=== PATIENT | female | born 1950 | race Caucasian/White ===

== ENCOUNTER 2020-08-13 10:18 | Outpatient (CLI) | payer MEDICARE, OTHER, SELFPAY ==
--- NOTE | ~2020-08-13 | XR_ITS ---
XR foot LT 2V DATE: 08/13/2020 11:17 INDICATION: Stiffness, joint pain. Gout. History of lupus. TECHNIQUE: AP and lateral views COMPARISON: None FINDINGS: There is slight plantar and posterior calcaneal enthesopathy. No fracture, dislocation, periosteal reaction or bone destruction. IMPRESSION: Slight plantar and posterior calcaneal enthesopathy Reviewed, dictated and finalized at location A.
--- NOTE | ~2020-08-13 | XR_ITS ---
XR wrist RT 2V DATE: 08/13/2020 11:17 INDICATION: Joint pain, stiffness. Gout. History of lupus. TECHNIQUE: AP and lateral views COMPARISON: None FINDINGS: There is mild to moderate osteoarthritic change at the first carpometacarpal joint. Moderate osteopenia. No fracture or dislocation, periosteal reaction or bone destruction, chondrocalcinosis or erosive ana rosa nge. IMPRESSION: Mild to moderate osteoarthritic change at the first carpometacarpal joint Reviewed, dictated and finalized at location A.
--- NOTE | ~2020-08-13 | XR_ITS ---
XR wrist LT 2V DATE: 08/13/2020 11:17 INDICATION: Stiffness, joint pain. Gout. History of lupus. TECHNIQUE: AP and lateral views COMPARISON: None FINDINGS: There is mild osteoarthritic change at the first carpometacarpal joint. No erosive change or chondrocalcinosis. No fracture, dislocation, periosteal reaction or bone destruc tion. IMPRESSION: Mild osteoarthritic change at the first carpometacarpal joint Reviewed, dictated and finalized at location A.
--- NOTE | ~2020-08-13 | XR_ITS ---
XR hand RT 2V DATE: 08/13/2020 11:17 INDICATION: Joint stiffness, pain. Gout. History of lupus. TECHNIQUE: AP and lateral views COMPARISON: None FINDINGS: There is mild osteophytic change at the first carpometacarpal joint. No fracture, dislocation, periosteal reaction or bone destruction or erosive change is evident. IMPRESSION: Mild osteoarthritis at first carpal metacarpal joint Reviewed, dictated and finalized at location A.
--- NOTE | ~2020-08-13 | XR_ITS ---
XR hand LT 2V DATE: 08/13/2020 11:17 INDICATION: Stiffness, joint pain. Gout. History of lupus. TECHNIQUE: AP and lateral views COMPARISON: None FINDINGS: There is mild osteoarthritic change at the first carpometacarpal joint. No fracture, dislocation, periosteal reaction or bone destruction or erosive change. IMPRESSION: Mild osteoarthritis at the first carpometacarpal joint Reviewed, dictated and finalized at location A.
--- NOTE | ~2020-08-13 | XR_ITS ---
XR foot RT 2V DATE: 08/13/2020 11:17 INDICATION: Stiffness, joint pain. Gout. History of lupus. TECHNIQUE: AP and lateral views COMPARISON: None FINDINGS: There is mild osteoarthritis at the first metatarsophalangeal joint. No fracture or dislocation, periosteal reaction or bone destruction. IMPRESSION: Mild osteophyte is at first tarsal metatarsal joint Reviewed, dictated and finalized at location A.
--- NOTE | ~2020-08-13 | XR_ITS ---
XR ankle LT 2V DATE: 08/13/2020 11:17 INDICATION: Stiffness, joint pain. Gout. History of lupus. TECHNIQUE: 2 views COMPARISON: None FINDINGS: There is mild plantar calcaneal enthesopathy without associated periostitis or erosive mclaughlin ge. No fracture or dislocation of the ankle or disruption of the ankle mortise. No periosteal reaction or bone destruction. IMPRESSION: Mild plantar calcaneal enthesopathy Reviewed, dictated and finalized at location A.
--- NOTE | ~2020-08-13 | XR_ITS ---
XR ankle RT 2V DATE: 08/13/2020 11:17 INDICATION: Stiffness, joint pain. CAD. History of lupus. TECHNIQUE: AP and lateral views COMPARISON: None FINDINGS: No fracture or dislocation of the ankle or disruption of the ankle mortise. No periosteal r eaction or bone destruction. IMPRESSION: Negative Reviewed, dictated and finalized at location A. IMPRESSION: Negative
== END 2020-08-13 10:19 | disposition home or self-care (01) ==
DX: M34.1 CR(E)ST syndrome (principal); Z79.899 Other long term (current) drug therapy
CPT/HCPCS: 73100; 73120; 73600; 73620

== ENCOUNTER 2020-09-08 10:05 | Outpatient (CLI) | payer MEDICARE, OTHER, SELFPAY ==
--- NOTE | ~2020-09-08 | MR_ITS ---
EXAMINATION: MR knee RT wo con DATE: 09/08/2020 11:08 INDICATION: Right knee pain and swelling. TECHNIQUE: Magnetic resonance imaging (MRI) of the right knee was performed without intravenous contr ast. Sequences included coronal PD-weighted FSE, coronal PD-weighted FS FSE, sagittal T2-weighted FS E, sagittal PD-weighted FS FSE and axial PD weighted fat saturated FSE. COMPARISON: None. FINDINGS: Medial compartment: Complex tear of the body and posterior horn of the medial meniscus. Partial-thickness cartilage loss with chondral surface regularity of the anterior to central weightbearing medial femoral condyle. Emma per fissuring with underlying mild cortical irregularity along the lateral side of the anterior weigh tbearing medial femoral condyle. Lateral compartment: Small longitudinal tear involving the inner third of the posterior body and lateral side of the poste rior horn which extends to the inferior articular surface. Articular cartilage is normal. Patellofemoral compartment: Deep chondral fissuring with subarticular edema at the cephalad aspect of the patellar apical ridge w ith less severe partial thickness chondral ulceration at the more inferior apical ridge immediately a djacent medial and lateral facets. Additional chondral fissuring with minimal underlying cortical irr egularity along the inferior aspect of the medial trochlea. Ligaments and tendons: Anterior and posterior cruciate ligaments are normal. The medial collateral ligament and fibular pierce ateral ligament complex are normal. Patellar tendon is normal. Mild tendinopathy and small enthesophy emely at the patellar insertion of the distal quadriceps tendon. The visualized medial and lateral hams tring tendons as well as the iliotibial band are normal. Fluid: Physiologic amount of fluid in the joint space. No loose osteochondral bodies identified. Osseous/other: Small intraosseous ganglion cyst in the proximal tibia near the insertions of the posterior horn of t he medial meniscus and posterior cruciate ligament. No fracture or pathologic marrow replacing proces s. IMPRESSION: 1. Complex medial meniscal tear. 2. Small longitudinal oblique tear involving the inner third of the lateral meniscus at the junction of the body and posterior horn. 3. Mild tricompartmental osteoarthritis with moderate to high-grade chondromalacia in the medial and patellofemoral compartments. Reviewed, dictated and finalized at location A. NG [employer]CTOR IMPRESSION: 1. Complex medial meniscal tear. 2. Small longitudinal oblique tear involving the inner third of the lateral men iscus at the junction of the body and posterior horn. 3. Mild tricompartmental osteoarthritis with moderate to high-grade chondromala burak in the medial and patellofemoral compartments.
== END 2020-09-08 10:06 | disposition home or self-care (01) ==
LOC: CHSIMG 10:07
PROVIDERS: PCP Family Medicine; Visit Provider Orthopaedic Surgery
DX: M25.561 Pain in right knee (principal)
CPT/HCPCS: 73721

== ENCOUNTER 2020-09-11 08:49 | Outpatient (CLI) | payer MEDICARE, OTHER, SELFPAY ==
--- NOTE | ~2020-09-11 | MM_ITS ---
EXAMINATION: MM screening bre BI w harvinder HISTORY: Screening TECHNIQUE: Craniocaudal and mediolateral oblique 3-D tomosynthesis images were obtained and synthetic 2-D images were generated. CAD analysis was submitted and interpreted. COMPARISON: Comparison to multiple prior studies sequentially, with oldest reviewed study dated 04/2011. BREAST PARENCHYMAL COMPOSITION: The breasts are heterogeneously dense, which may obscure small masses . FINDINGS: There is no evidence of suspicious mass, calcification, or architectural distortion to sugg est malignancy in either breast. There has been no suspicious interval change. IMPRESSION: 1. No mammographic evidence of malignancy. 2. Recommend routine screening mammography in one year. BI-RADS Category 1: Negative Reviewed, dictated and finalized at location A. [employer]
[2020-09-11 09:10] VITALS: PULSE 76; O2SAT 99
[2020-09-11 09:32] VITALS: PULSE 87; O2SAT 84
[2020-09-11 09:33] VITALS: PULSE 91; O2SAT 84
[2020-09-11 09:35] VITALS: PULSE 87; O2SAT 86
[2020-09-11 09:37] VITALS: PULSE 102; O2SAT 94
--- NOTE | 2020-09-11 09:44 | HOMEO2EVAL ---
Home Oxygen Evaluation RC: Home Oxygen (O2) Evaluation Start: 09/11/20 09:31 Freq: Status: Active Protocol: RPE Activity Type Activity Date Activity User E-Sign Co-Sign Detail Recorded Client Recorded Date Recorded By Document 09/11/20 09:10 SJB [id number] 09/11/20 09:43 SJB Document 09/11/20 09:32 SJB [id number] 09/11/20 09:43 SJB Document 09/11/20 09:33 SJB [id number] 09/11/20 09:43 SJB Document 09/11/20 09:35 SJB [id number] 09/11/20 09:43 SJB Document 09/11/20 09:37 SJB [id number] 09/11/20 09:43 SJB 09/11/20 09/11/20 09/11/20 09:10 09:32 09:33 Home O2 Evaluation Test Phase Resting Exercise Exercise Oxygen Delivery Room Air Room Air Nasal Cannula Oxygen Flow Rate (L/min) 2 Pulse Oximetry (90-100 %) 99 84 L 84 L Pulse Rate (60-100 beats/min) 76 87 91 Activity Tolerance Good Good Fair Rating of Perceived Dyspnea (PD) +1 Mild, +2 Mild, Some +1 Mild, Noticeable to Difficulty, Noticeable to the Participant Noticeable to the Participant but Not to an the Observer but Not to an Observer Observer Rate of Perceived Exertion (PE) 9 Very light 11 Fairly light Ambulation Distance (feet) 150 250 Home Oxygen Evaluation Comments 02 started at 2 02 turned up to lpm 3 lpm Treatment Charges O2 Evaluation 09/11/20 09/11/20 09:35 09:37 Home O2 Evaluation Test Phase Exercise Exercise Oxygen Delivery Nasal Cannula Nasal Cannula Oxygen Flow Rate (L/min) 3 4 Pulse Oximetry (90-100 %) 86 L 94 Pulse Rate (60-100 beats/min) 87 102 H Activity Tolerance Fair Fair Rating of Perceived Dyspnea (PD) +2 Mild, Some +2 Mild, Some Difficulty, Difficulty, Noticeable to Noticeable to the Observer the Observer Rate of Perceived Exertion (PE) 12 11 Fairly light Ambulation Distance (feet) 300 600 Home Oxygen Evaluation Comments 02 turned up to Patient 4 lpm finished walk on 4 lpm mickey well. Once walk is over and patient sits, without 02, she recovers quickly to 98%. Pt states she never felt SOB throughout the 6 minute walk but knows that that is what happens to her at home with any walking. Treatment Charges
--- NOTE | 2020-09-11 12:22 | WPDPFTINT ---
PFT Interpretation PFT Interpretation: DOS: 09/11/2020 REQUESTING: REASON FOR TESTING: Pulmonary fibrosis PULMONARY FUNCTION TESTS Results are reproducible and reliable. Spirometry: FEV1 is 95%, normal. FVC is 106%< normal. FEV1% is normal. OHG54-06% is decreased at 54%. There is a 14% increased in the small airways flow after bronchodilator, which is not significant. Lung volumes: Total lung capacity is increased at 125%, mild hyperinflation. RV is severely increased at 165% consistent with severe air trapping. Normal airway resistance. Diffusion: DLCO is 73%, mildly decreased. Flow volume loop: Normal. IMPRESSION: Small airways pattern with non-statistically significant response to bronchodilator; mild hyperinflation, severe air trapping, mild decrease in diffusion. Lack of response to bronchodilator should not preclude use if clinically indicated. Macrina Silveira MD
--- NOTE | 2020-09-11 12:39 | WPDPFTINT ---
PFT Interpretation PFT Interpretation: SIX MINUTE WALK WITH HOME OXYGEN EVALUATION DOS: 09/11/2020 REQUESTING: Dr Silveira REASON: pulmonary fibrosis This test was conducted per ATS protocol. The initial saturation was 99% on room air at rest. Pulse was 76. The patient walked for 6 minutes dropping the saturation to 84%. At this point, oxygen was started at 2 liters/minute. Oxygen was gradually increased to maintain a saturation greater than 88%. Patient required 4 L /minute during walking. She recovered quickly to 98%. She did not feel significantly short of breath. Distance walked was 600 ft/ 184.8 meters which is less than expected per age. She did not stop to rest. Pulse ranged from 76 to 102 beats per minute. IMPRESSION: This patient desaturates with walking and requires 4 liters/minute with exertion, none at rest. . Distance walked 600 ft less than expected for age.
--- NOTE | 2020-09-11 12:40 | ECHO_ITS ---
Patient Info Name: Tameka Vasquez Age: 70 years : 1950 Gender: Female Ht: 64 in Wt: 162 lbs BSA: 1.84 m2 HR: 65 bpm BP: 131 / 77 mmHg Heart Rhythm: Sinus Rhythm Technical Quality: Good Exam Date: 09/11/2020 1:53 PM Exam Location: [facility] Patient Status: Outpatient Admit Date: 09/11/2020 Staff Ordering Physician: Macrina Silveira MD Heater Furnace: Grecia Echavarria RDCS Attending Provider: Macrina Silveira MD Referring Physician: Jordana LORENZ; Exam Type: CA echo dop color flow w con Study Info Indications R06.02 - Shortness of breath Complete two-dimensional, color flow and Doppler transthoracic echocardiogram is performed with contrast to opacify the left ventricle and to improve the deliniation of the left ventricle endocardial borders. Strain analysis performed. Contrast/Agitated Saline Contrast/Ag. Saline: Definity Amount: 4.00 ml New IV Access: Antecubital Space and Left Site Condition: No extravasation, Site dressing applied and IV removed History/Risk Factors Congenital Heart Disease (CHD): No Diabetic Therapy: Oral Myocardial Infarction (OR): No Chronic Lung Disease: Yes Obesity: Yes Renal Disease: No Coronary Artery Disease (CAD) No Congestive Heart Failure (CHF): No Cardiomyopathy/LV Systolic Dysfunction: No Diabetes Mellitus: Type II COPD: No Tobacco Use: Former Cerebrovascular Disease: No Deep Vein Thrombosis (DVT): None Dialysis: None Frailty Scale (CSHA): 3: Managing Well Cardiac Arrest: No Summary 1. Left ventricular chamber dimension is mildly enlarged. 2. Definity contrast administered improved wall motion interpretation. 3. Left ventricular systolic function is normal, estimated at 55-60%. 4. The left ventricular diastolic function is grade I diastolic dysfunction. 5. Global longitudinal strain is normal at -17.9%. 6. Right ventricular systolic function is mildly reduced based on TAPSE of 1.5 cm. 7. Left atrial chamber dimension is mildly enlarged. 8. There is mild mitral valve regurgitation. 9. There is mild tricuspid valve regurgitation. 10. No pulmonary hypertension, estimated pulmonary arterial systolic pressure is 35 mmHg. 11. There is trace pulmonic regurgitation. Recommendations * Continue medical therapy for diabetes. Left Ventricle Tissue doppler E/e' is not performed. Definity contrast administered improved wall motion interpretation. Global longitudinal strain is normal at -17.9%. Left ventricular chamber dimension is mildly enlarged. Left ventricular systolic function is normal, estimated at 55-60%. The left ventricular diastolic function is grade I diastolic dysfunction. Right Ventricle Right ventricular systolic function is mildly reduced based on TAPSE of 1.5 cm. Right ventricular chamber dimension is normal. Left Atria Left atrial chamber dimension is mildly enlarged. Right Atria Right atrial chamber dimension is normal. Aortic Valve The aortic valve is trileaflet. There is no aortic valve stenosis. There is no aortic valve regurgitation. Pulmonic Valve There is trace pulmonic regurgitation. Mitral Valve There is no mitral valve stenosis. There is mild mitral valve regurgitation. Tricuspid Valve There is mild tricuspid valve regurgitation. No pulmonary hypertension, estimated pulmonary arterial systolic pressure is 35 mmHg. Pericardium/Pleu
== END 2020-09-11 08:50 | disposition home or self-care (01) ==
PROVIDERS: PCP Family Medicine; Visit Provider Internal Medicine Critical Care Medicine
DX: J84.10 Pulmonary fibrosis, unspecified (principal); R06.02 Shortness of breath; Z12.31 Encounter for screening mammogram for malignant neoplasm of breast
CPT/HCPCS: 77063; 77067; 94060; 94618; 94726; 94729; C8929

== ENCOUNTER 2021-03-20 13:53 | Emergency (ER) | payer MEDICARE, SELFPAY ==
[2021-03-20 14:00] VITALS: BP 137/68; PULSE 83; RESP 16; TEMP 36.2; O2SAT 100
--- NOTE | 2021-03-20 14:08 | ED.FEMALEGU ---
HPI - Female Genitourinary General Chief complaint: Urogenital-Female Stated complaint: poss uti Time Seen by Provider: 03/20/21 14:08 Source: patient and RN notes reviewed History of Present Illness HPI Narrative: Patient is a 70-year-old female who presents the urgent care with complaints of a possible UTI. Patient states that a week and a half ago she started to have symptoms and was taking cssa-mth-[id number] Azo. Patient states she was then prescribed Macrobid by her PCP and finished that prescription this past Thursday. Patient then started having symptoms again and was treating herself with Azo. Patient states that the frequency and urgency has increased and it is very painful to urinate . Patient is also been taking Advil. Denies of any fever, chills, nausea, vomiting, abdominal pain. No other acute complaints. No acute distress noted. Patient aware of the plan of care. Some parts of this dictation were generated by voice recognition software and may contain typographical and/or grammatical inaccuracies. Related Data Home Medications Medication Instructions Recorded Confirmed glycopyrrolate 9 mcg-formoterol 2 puff INHALATION BID 11/05/20 01/08/21 4.8 mcg HFA aerosol inhaler esomeprazole magnesium 40 mg PO DAILY 03/20/21 03/20/21 losartan 50 mg PO DAILY 03/20/21 03/20/21 metformin 500 mg PO BID 03/20/21 03/20/21 propranolol 10 mg PO DAILY 03/20/21 03/20/21 simvastatin 10 mg PO DAILY 03/20/21 03/20/21 Allergies Allergy/AdvReac Type Severity Reaction Status Date / Time Corticosteroids Allergy Unknown Unknown Verified 11/13/20 13:43 (Glucocorticoids) cortisone Allergy Unknown Swelling Verified 11/13/20 13:43 quinapril Allergy Unknown cough Verified 11/13/20 13:43 valsartan Allergy Unknown cough Verified 11/13/20 13:43 Review of Systems Review of Systems: Narrative: CONSTITUTIONAL: Denies fever, chills, or sweats. EYES: Denies visual changes, redness, or discharge. ENT: Denies rhinorrhea, congestion, sore throat, or otalgia. CARDIOVASCULAR: Denies chest pain, palpitations, or edema. RESPIRATORY: Denies cough or dyspnea. GASTROINTESTINAL: Denies abdominal pain, nausea, vomiting, or diarrhea. GENITOURINARY: Reports of dysuria, urgency and frequency SKIN: Denies rash or itching. MUSCULOSKELETAL: Denies back pain, joint pain, or myalgia. NEUROLOGIC: Denies headache, numbness, or weakness. All other systems reviewed are negative, except as documented in HPI. [facility] Past Medical History Medical History Anemia Anxiety Arthritis BMI 27.0-27.9,adult Diabetes GERD (gastroesophageal reflux disease) Gout Hemoglobin A1c less than 7.0% 6.9 on 08/01/20 Hypertension Hyperuricemia without signs of inflammatory arthritis and tophaceous disease (~2014) IBS (irritable bowel syndrome) Lupus Osteoarthritis of right knee Osteoporosis Scleroderma Tear of medial meniscus of right knee Trochanteric bursitis, right hip Surgical History Surgical History H/O shoulder surgery Dr. Fowler, date unknown H/O: hysterectomy History of carpal tunnel surgery March 2019, Dr. Vieira Family History Family History Mother Diabetes mellitus Hypertension Family history of rheumatoid arthritis Family history of elevated blood lipids Sibling Family history of rheumatoid arthritis Family history of cardiovascular disease Hypertension Father Family history of Alzheimer's disease Hypertension Carcinoma of colon Grandparent Diabetes mellitus Other Family history of malignant neoplasm Social History Social History Smoking status: Former smoker Smoking end date: 11/09/90 Alcohol intake: current Gender identity (if verbalized by the patient): Female Comments At the time of my signature, I reviewed and a
== END 2021-03-20 14:30 | disposition home or self-care (01) ==
PROVIDERS: Emergency Provider Nurse Practitioner Family
DX: N39.0 Urinary tract infection, site not specified (principal); Z87.891 Personal history of nicotine dependence; E11.9 Type 2 diabetes mellitus without complications; K21.9 Gastro-esophageal reflux disease without esophagitis; M10.9 Gout, unspecified; I10 Essential (primary) hypertension; M81.0 Age-related osteoporosis without current pathological fracture; M34.9 Systemic sclerosis, unspecified; M17.11 Unilateral primary osteoarthritis, right knee
CPT/HCPCS: 81003; 87086; 87088; 99213; G0463

== ENCOUNTER 2021-09-12 11:50 | Outpatient (CLI) | payer MEDICARE, SELFPAY ==
--- NOTE | ~2021-09-12 | DEXA_ITS ---
Bone Density Report Name: Tameka Vasquez Age: 71 Sex: Female Ethnicity: White Date of : 1950 Indication: postmenopausal; screening for osteoporosis; height loss; hysterectomy; Referring Provider: Deisi Orr Study: Bone densitometry was performed. Exam Date: September 12, 2021 Accession number: [id number] Bone Density: Region BMD T-score Z-score Classification AP Spine(L1, L3, L4) 0.881 -1.6 0.6 Osteopenia Femoral Neck (Left) 0.680 -1.5 0.3 Osteopenia Total Hip (Left) 0.829 -0.9 0.6 Normal Femoral Neck (Right) 0.650 -1.8 0.0 Osteopenia Total Hip (Right) 0.826 -0.9 0.6 Normal Femoral Neck Mean 0.665 -1.7 0.2 Osteopenia Total Hip Mean 0.828 -0.9 0.6 Normal World Health Organization criteria for BMD impression classify patients as: Normal (T-score at or above -1.0), Osteopenia (T-score between -1.0 and -2.5), or Osteoporosis (T-score at or below -2.5). 10-year Fracture Risk(1): Major Osteoporotic Fracture 10% Hip Fracture 1.8% Reported Risk Factors: [place] (), Neck BMD=0.650, BMI=23.4 (1) FRAX(R) Version 3.08. Fracture probability calculated for an untreated patient. Fracture probability may be lower if the patient has received treatment. Clinical Information Provided by Patient: Has the following medical conditions: Hysterectomy Patient maximum height was 65 Menopause Age: 34 No regular weight bearing exercise Does not regularly consume dairy products Drinks caffeinated beverages Onset of menses at age 13 Number of children 1 Impression: The patient has low bone mass, based on the Right Femoral Neck T-score. Discussion: BONE DENSITY IS LOW AT ONE OR MORE SKELETAL SITES. This patient's lowest T-score is low at one or more skeletal sites. It meets the World Health Organization's (WHO) criteria for ?low bone mass? (T-score between -1.0 and -2.5). The patient's 10-year risk of fracture as calculated by FRAX is less than the threshold where pharmacological therapy is recommended by the National Osteoporosis Foundation (NOF). However, all treatment decisions require clinical judgment and consideration of individual patient factors, including patient preferences, comorbidities, previous drug use, risk factors not captured in the FRAX model (e.g., frailty, falls, vitamin D deficiency, increased bone turnover, interval significant decline in bone density) and possible under or overestimation of fracture risk by FRAX. The patient should follow a healthful lifestyle (good nutrition with adequate calcium and vitamin D, and appropriate weight-bearing exercise). Follow-Up: Consider repeating this study in 2 to 3 years to reassess this patient's status, or sooner if there is some new clinical indication. Reported by: Dr. Chuy King on 09/12/2021
--- NOTE | ~2021-09-12 | MM_ITS ---
EXAMINATION: MM screening bre BI w harvinder HISTORY: Screening TECHNIQUE: Craniocaudal and mediolateral oblique 3-D tomosynthesis images were obtained and synthetic 2-D images were generated. CAD analysis was submitted and interpreted. COMPARISON: Comparison to multiple prior studies sequentially, with oldest reviewed study dated 09/10. BREAST PARENCHYMAL COMPOSITION: The breasts are heterogeneously dense, which may obscure small masses . FINDINGS: There is no evidence of suspicious mass, calcification, or architectural distortion to sugg est malignancy in either breast. There has been no suspicious interval change. IMPRESSION: 1. No mammographic evidence of malignancy. 2. Recommend routine screening mammography in one year. BI-RADS Category 1: Negative Reviewed, dictated and finalized at location A.
== END 2021-09-12 11:51 | disposition home or self-care (01) ==
LOC: CHSIMG 11:52
PROVIDERS: PCP Family Medicine; Visit Provider Family Medicine
DX: Z78.0 Asymptomatic menopausal state (principal); Z12.31 Encounter for screening mammogram for malignant neoplasm of breast
CPT/HCPCS: 77063; 77067; 77080

== ENCOUNTER 2022-07-21 13:16 | Outpatient (CLI) | payer MEDICARE, SELFPAY ==
--- NOTE | 2022-07-21 01:00 | ECHO_ITS ---
Patient Info Name: Tameka Vasquez Age: 72 years : 1950 Gender: Female Ht: 64 in Wt: 130 lbs BSA: 1.64 m2 HR: 70 bpm BP: 159 / 93 mmHg Heart Rhythm: Sinus Rhythm Technical Quality: Fair Exam Date: 07/21/2022 1:16 PM Exam Location: [facility] Patient Status: Outpatient Admit Date: 07/21/2022 Staff Ordering Physician: Carolina, Kasey PATEL Scouring Pads Supervisor: Rosalba Hensley RDCS Attending Provider: Carolina, Kasey PATEL Exam Type: CA echo doppler color flow Study Info Indications - DIASTOLIC DYSFUNCTION Complete two-dimensional, color flow and Doppler transthoracic echocardiogram is performed. History/Risk Factors Congenital Heart Disease (CHD): No Diabetic Therapy: Oral Myocardial Infarction ([place]): No Chronic Lung Disease: Yes Obesity: Yes Renal Disease: No Coronary Artery Disease (CAD) No Congestive Heart Failure (CHF): No Cardiomyopathy/LV Systolic Dysfunction: No Diabetes Mellitus: Type II COPD: No Tobacco Use: Former Cerebrovascular Disease: No Deep Vein Thrombosis (DVT): None Dialysis: None Frailty Scale (CSHA): 3: Managing Well Cardiac Arrest: No Summary 1. Complete two-dimensional, color flow and Doppler transthoracic echocardiogram is performed. 2. Left ventricular chamber dimension is normal. 3. Left ventricular systolic function is normal, estimated at 60-65%. 4. There is mildly increased left ventricular wall thickness. 5. The left ventricular diastolic function is grade I diastolic dysfunction. 6. E/e' 11 is mildly elevated. 7. Left atrial chamber dimension is mildly enlarged. 8. There is trace mitral valve regurgitation. 9. There is mild tricuspid valve regurgitation. 10. No pulmonary hypertension, estimated pulmonary arterial systolic pressure is 36 mmHg. 11. There is trace pulmonic regurgitation. Recommendations * Continue medical therapy for diabetes. Left Ventricle E/e' 11 is mildly elevated. Left ventricular chamber dimension is normal. Left ventricular systolic function is normal, estimated at 60-65%. There is mildly increased left ventricular wall thickness. The left ventricular diastolic function is grade I diastolic dysfunction. Right Ventricle Right ventricular systolic function is normal and with normal TAPSE 2.1 cm. Right ventricular chamber dimension is normal. Left Atria Left atrial chamber dimension is mildly enlarged. Right Atria Right atrial chamber dimension is normal. Aortic Valve The aortic valve is trileaflet. There is no aortic valve stenosis. There is no aortic valve regurgitation. Pulmonic Valve There is trace pulmonic regurgitation. Mitral Valve There is no mitral valve stenosis. There is trace mitral valve regurgitation. Tricuspid Valve There is mild tricuspid valve regurgitation. No pulmonary hypertension, estimated pulmonary arterial systolic pressure is 36 mmHg. Pericardium/Pleural There is no pericardial effusion. Inferior Vena Cava Normal inferior vena cava with >50% collapse upon inspiration consistent with normal right atrial pressure, 5 mmHg. Aorta The aortic root size at the sinus of Valsalva is normal. Left Ventricular Outflow Tract Name Value Normal LVOT 2D
== END 2022-07-21 13:17 | disposition home or self-care (01) ==
LOC: CHSIMG 13:21
PROVIDERS: PCP Family Medicine; Visit Provider Internal Medicine Rheumatology
DX: I51.89 Other ill-defined heart diseases (principal); R94.30 Abnormal result of cardiovascular function study, unspecified
CPT/HCPCS: 93306

== ENCOUNTER 2022-07-23 10:54 | Outpatient (CLI) | payer MEDICARE, SELFPAY | END 2022-07-23 10:55 | disposition home or self-care (01) | PROVIDERS: PCP Family Medicine; Visit Provider Nurse Practitioner | DX: M34.1 CR(E)ST syndrome (principal) | CPT/HCPCS: 99199 ==

== ENCOUNTER 2022-08-15 12:37 | Outpatient (CLI) | payer MEDICARE, SELFPAY ==
--- NOTE | 2022-08-15 16:06 | P.PCNPFT_ITS ---
PFT Procedure Performed PFT Procedure Performed Spirometry with Pre/Post Bronchodilator Plethysmography (Lung Vol) Diffusing Cap (DLCO) Flow Vol Loop PFT Interpretation DOS: 08/15/2022 REQUESTING: Dr. Orr REASON FOR TESTING: Systemic sclerosis PULMONARY FUNCTION TESTS Results are reliable and reproducible. Spirometry: Pre-bronchodilator FEV1 is 2.31 L, 107% predicted. The pre- bronchodilator FVC is 3.24 L, 119% predicted. FEV1:FVC is 71%. After bronchodilator, the FVC increases 3% and the FEV1 increases 7%. Neither of these is significant. Lung volumes: The total lung capacity is 103% predicted, 5.06 L, normal. Residual volume is 1.79 L, 90% predicted, normal. RV/TLC is in the normal range. There is no air trapping or hyperinflation. FRC 3.13 L, 106% predicted, normal. Increased airway resistance 197% predicted. Diffusion: DLCO is 12 mL/min/mmHg, 68% predicted, mildly decreased. The DLCO/VA is 77%, 2.77 mL/min/mmHg/L which is partially corrected for alveolar volume. Flow volume loop: Normal. IMPRESSION: This pulmonary function study with bronchodilator shows normal spirometry, no significant response to bronchodilator. Normal lung volumes. Mild diffusion impairment. Lack of response to bronchodilator should not preclude use if clinically indicated. There are no prior studies for comparison. Macrina Silveira MD
== END 2022-08-15 12:38 | disposition home or self-care (01) ==
LOC: CHSCARD 12:43
PROVIDERS: PCP Family Medicine; Visit Provider Family Medicine
DX: M34.1 CR(E)ST syndrome (principal)
CPT/HCPCS: 94060; 94726; 94729

== ENCOUNTER 2022-09-30 12:11 | Outpatient (CLI) | payer MEDICARE, SELFPAY ==
--- NOTE | ~2022-09-30 | MM_ITS ---
EXAMINATION: MM screening bre BI w harvinder HISTORY: Screening mammogram TECHNIQUE: Craniocaudal and mediolateral oblique 3-D tomosynthesis images were obtained and synthetic 2-D images were generated. CAD analysis was submitted and interpreted. COMPARISON: 09/2021, 09/28/2020, 08/31/2019 bilateral screening mammogram examinations BREAST PARENCHYMAL COMPOSITION: The breasts are heterogeneously dense, which may obscure small masses . FINDINGS: There is no evidence of suspicious mass, calcification, or architectural distortion to sugg est malignancy in either breast. There has been no suspicious interval change. IMPRESSION: 1. No mammographic evidence of malignancy. 2. Recommend routine screening mammography in one year. BI-RADS Category 1: Negative Reviewed, dictated and finalized at location A. RUMENT LENS INSPECTOR
== END 2022-09-30 12:12 | disposition home or self-care (01) ==
LOC: CHSIMG 12:12
PROVIDERS: PCP Family Medicine; Visit Provider Family Medicine
DX: Z12.31 Encounter for screening mammogram for malignant neoplasm of breast (principal)
CPT/HCPCS: 77063; 77067

== ENCOUNTER 2023-10-12 12:49 | Outpatient (CLI) | payer MEDICARE, SELFPAY ==
--- NOTE | 2023-10-12 13:04 | ECHO_ITS ---
Patient Info Name: Tameka Vasquez Age: 73 years : 1950 Gender: Female Ht: 64 in Wt: 128 lbs BSA: 1.62 m2 HR: 65 bpm BP: 183 / 85 mmHg Heart Rhythm: Sinus Rhythm Technical Quality: Good Exam Date: 10/12/2023 1:59 PM Exam Location: [facility] Patient Status: Outpatient Admit Date: 10/12/2023 Staff Ordering Physician: Sosa, Gloria ALCAZAR Stem Dryer Maintainer: Daryl Cervantes RDCS Attending Provider: Sosa, Gloria ALCAZAR Exam Type: CA echo doppler color flow Study Info Indications - SOB Complete two-dimensional, color flow and Doppler transthoracic echocardiogram is performed. History/Risk Factors Congenital Heart Disease (CHD): No Diabetic Therapy: Oral Myocardial Infarction ([place]): No Chronic Lung Disease: Yes Obesity: Yes Renal Disease: No Coronary Artery Disease (CAD) No Congestive Heart Failure (CHF): No Cardiomyopathy/LV Systolic Dysfunction: No Diabetes Mellitus: Type II COPD: No Tobacco Use: Former Cerebrovascular Disease: No Deep Vein Thrombosis (DVT): None Dialysis: None Frailty Scale (CSHA): 3: Managing Well Cardiac Arrest: No Summary 1. Complete two-dimensional, color flow and Doppler transthoracic echocardiogram is performed. 2. Left ventricular chamber dimension is normal. 3. Left ventricular systolic function is normal, estimated at 60-65%. 4. The left ventricular diastolic function is grade I diastolic dysfunction. 5. E/e' 12 is mildly elevated. 6. Left atrial chamber dimension is mildly enlarged. 7. There is trace mitral valve regurgitation. 8. There is trace tricuspid valve regurgitation. 9. No pulmonary hypertension, estimated pulmonary arterial systolic pressure is 11 mmHg. Recommendations * Continue medical therapy for diabetes. Left Ventricle E/e' 12 is mildly elevated. Left ventricular chamber dimension is normal. Left ventricular systolic function is normal, estimated at 60-65%. The left ventricular diastolic function is grade I diastolic dysfunction. Right Ventricle Right ventricular systolic function is normal and with normal TAPSE 2.6 cm. Right ventricular chamber dimension is normal. Left Atria Left atrial chamber dimension is mildly enlarged. Right Atria Right atrial chamber dimension is normal. Aortic Valve The aortic valve is trileaflet. There is no aortic valve stenosis. There is no aortic valve regurgitation. Pulmonic Valve There is no pulmonic regurgitation. Mitral Valve There is no mitral valve stenosis. There is trace mitral valve regurgitation. Tricuspid Valve There is trace tricuspid valve regurgitation. No pulmonary hypertension, estimated pulmonary arterial systolic pressure is 11 mmHg. Pericardium/Pleural There is no pericardial effusion. Inferior Vena Cava Normal inferior vena cava with >50% collapse upon inspiration consistent with normal right atrial pressure, 5 mmHg. Aorta The aortic root size at the sinus of Valsalva is normal. Left Ventricular Outflow Tract Name Value Normal LVOT 2D LVOT Diameter 2.1 cm LVOT Doppler LVOT Peak Velocity 90 cm/s LVOT Peak Gradient 3 mmHg LVOT Mean Gr
== END 2023-10-12 12:50 | disposition home or self-care (01) ==
LOC: CHSIMG 12:51
PROVIDERS: PCP Family Medicine; Visit Provider Nurse Practitioner
DX: R06.02 Shortness of breath (principal); I51.7 Cardiomegaly
CPT/HCPCS: 93306

== ENCOUNTER 2023-10-29 13:07 | Outpatient (CLI) | payer MEDICARE, SELFPAY ==
--- NOTE | ~2023-10-29 | MM_ITS ---
EXAMINATION: MM screening bre BI w harvinder HISTORY: Screening mammogram TECHNIQUE: Craniocaudal and mediolateral oblique 3-D tomosynthesis images were obtained and synthetic 2-D images were generated. CAD analysis was submitted and interpreted. COMPARISON: 09/30/2022, 09/2021, 09/28/2020 bilateral screening mammogram examinations BREAST PARENCHYMAL COMPOSITION: The breasts are heterogeneously dense, which may obscure small masses . FINDINGS: There is no evidence of suspicious mass, calcification, or architectural distortion to sugg est malignancy in either breast. There has been no suspicious interval change. IMPRESSION: 1. No mammographic evidence of malignancy. 2. Recommend routine screening mammography in one year. BI-RADS Category 1: Negative Reviewed, dictated and finalized at location A. [employer]
== END 2023-10-29 13:08 | disposition home or self-care (01) ==
LOC: CHSIMG 13:09
PROVIDERS: PCP Family Medicine; Visit Provider Nurse Practitioner
DX: Z12.31 Encounter for screening mammogram for malignant neoplasm of breast (principal)
CPT/HCPCS: 77063; 77067

== ENCOUNTER 2023-11-18 12:46 | Outpatient (CLI) | payer MEDICARE, SELFPAY ==
--- NOTE | ~2023-11-18 | DEXA_ITS ---
Bone Density Report Name: CANDICE ANDRE Age: 73 Sex: Female Ethnicity: White Date of : 1950 Indication: postmenopausal; screening for osteoporosis; height loss; hysterectomy; Referring Provider: Deisi Orr Study: Bone densitometry was performed. Exam Date: November 18, 2023 Accession number: [id number] Bone Density: Region BMD T-score Z-score Classification AP Spine(L1-L4) 0.916 -1.2 1.1 Osteopenia Femoral Neck (Left) 0.747 -0.9 1.0 Normal Total Hip (Left) 0.840 -0.8 0.8 Normal Femoral Neck (Right) 0.577 -2.4 -0.5 Osteopenia Total Hip (Right) 0.796 -1.2 0.4 Osteopenia Femoral Neck Mean 0.662 -1.7 0.2 Osteopenia Total Hip Mean 0.818 -1.0 0.6 Normal World Health Organization criteria for BMD impression classify patients as: Normal (T-score at or above -1.0), Osteopenia (T-score between -1.0 and -2.5), or Osteoporosis (T-score at or below -2.5). 10-year Fracture Risk(1): Major Osteoporotic Fracture 14% Hip Fracture 3.7% Reported Risk Factors: [place] (), Neck BMD=0.577, BMI=23.4 (1) FRAX(R) Version 3.08. Fracture probability calculated for an untreated patient. Fracture probability may be lower if the patient has received treatment. Clinical Information Provided by Patient: Has the following medical conditions: Hysterectomy Patient maximum height was 65 Menopause Age: 34 No regular weight bearing exercise Does not regularly consume dairy products Drinks caffeinated beverages Onset of menses at age 13 Number of children 1 Impression: The patient has low bone mass, based on the Right Femoral Neck T-score. Discussion: BONE DENSITY IS LOW AT ONE OR MORE SKELETAL SITES. This patient's lowest T-score is low at one or more skeletal sites. It meets the World Health Organization's (WHO) criteria for ?low bone mass? (T-score between -1.0 and -2.5). The patient's 10-year risk of fracture as calculated by FRAX is less than the threshold where pharmacological therapy is recommended by the National Osteoporosis Foundation (NOF). However, all treatment decisions require clinical judgment and consideration of individual patient factors, including patient preferences, comorbidities, previous drug use, risk factors not captured in the FRAX model (e.g., frailty, falls, vitamin D deficiency, increased bone turnover, interval significant decline in bone density) and possible under or overestimation of fracture risk by FRAX. The patient should follow a healthful lifestyle (good nutrition with adequate calcium and vitamin D, and appropriate weight-bearing exercise). Follow-Up: Consider repeating this study in 2 to 3 years to reassess this patient's status, or sooner if there is some new clinical indication. Reported by: Dr. Raheem Trejo on 11/18/2023
== END 2023-11-18 12:47 | disposition home or self-care (01) ==
LOC: CHSIMG 12:47
PROVIDERS: PCP Family Medicine; Visit Provider Family Medicine
DX: Z78.0 Asymptomatic menopausal state (principal); M85.89 Other specified disorders of bone density and structure, multiple sites
CPT/HCPCS: 77080

== ENCOUNTER 2023-12-03 11:02 | Outpatient (CLI) | payer MEDICARE, SELFPAY ==
--- NOTE | 2023-12-03 15:23 | P.PCNPFT_ITS ---
PFT Procedure Performed PFT Procedure Performed Plethysmography (Lung Vol) Diffusing Cap (DLCO) Flow Vol Loop Spirometry w/o Bronchodil PFT Interpretation DOS: 12/03/2023 REQUESTING: Gloria Swan NP REASON FOR TESTING: shortness of breath, scleroderma, SLE PULMONARY FUNCTION TESTS Results are reliable and reproducible. Spirometry: Pre-bronchodilator FEV1 is 2.37 L, 116% predicted. The pre- bronchodilator FVC is 3.24 L, 126% predicted. FEV1/FVC is 73%. No bronchodilator administered. Lung volumes: The total lung capacity is 111% predicted, 5.09 L, normal. Residual volume is 1.85 L, 99% predicted, normal. RV/TLC is 36%, normal. normal airway resistance. Diffusion: DLCO is 11.4, 66% predicted, mildly decreased. The DLCO/VA is 3.16, 89% predicted, normal. Flow volume loop: Normal. IMPRESSION: This pulmonary function study shows normal spirometry, normal lung volumes, mild diffusion impairment. Lack of response to bronchodilator should not preclude use if clinically indicated. Compared to prior study on 08/15/2022, the values are similar. Macrina Silveira MD
== END 2023-12-03 11:03 | disposition home or self-care (01) ==
LOC: CHSCARD 11:03
PROVIDERS: PCP Family Medicine; Visit Provider Nurse Practitioner
DX: R06.02 Shortness of breath (principal)
CPT/HCPCS: 94010; 94726; 94729

== ENCOUNTER 2024-11-04 10:52 | Outpatient (CLI) | payer MEDICARE, SELFPAY | END 2024-11-04 10:53 | disposition home or self-care (01) | LOC: CHSCARD 10:57 | PROVIDERS: PCP Family Medicine; Visit Provider Nurse Practitioner | DX: R06.02 Shortness of breath (principal); R94.2 Abnormal results of pulmonary function studies | CPT/HCPCS: 94060; 94726; 94729 ==

== ENCOUNTER 2024-11-10 11:41 | Outpatient (CLI) | payer MEDICARE, SELFPAY ==
--- NOTE | 2024-11-10 11:49 | ECHO_ITS ---
Patient Info Name: Tameka Vasquez Age: 74 years : 1950 Gender: Female Ht: 64 in Wt: 130 lbs BSA: 1.64 m2 HR: 70 bpm BP: 140 / 80 mmHg Heart Rhythm: Sinus Rhythm Technical Quality: Good Exam Date: 11/10/2024 12:30 PM Site Location: [place] Exam Location: Echo Lab Patient Status: Outpatient Admit Date: 11/10/2024 Staff Ordering Physician: Sosa, Gloria ALCAZAR Argon Tester: Jessica Thakkar RDCS Attending Provider: SosaGloria NP Exam Type: CA echo doppler color flow Study Info Complete two-dimensional, color flow and Doppler transthoracic echocardiogram is performed. History/Risk Factors Congenital Heart Disease (CHD): No Diabetic Therapy: Oral Myocardial Infarction ([place]): No Chronic Lung Disease: Yes Obesity: Yes Renal Disease: No Coronary Artery Disease (CAD) No Congestive Heart Failure (CHF): No Cardiomyopathy/LV Systolic Dysfunction: No Diabetes Mellitus: Type II COPD: No Tobacco Use: Former Cerebrovascular Disease: No Deep Vein Thrombosis (DVT): None Dialysis: None Frailty Scale (CSHA): 3: Managing Well Cardiac Arrest: No Summary 1. Complete two-dimensional, color flow and Doppler transthoracic echocardiogram is performed. 2. Normal LV size and systolic function. 3. Normal RV size and systolic function. 4. Preserved valvular function. 5. No pericardial effusion. 6. Mild LAE. Recommendations * Continue medical therapy for diabetes. Left Ventricle Left ventricular chamber dimension is normal. Left ventricular systolic function is normal, estimated at 60-65%. There is no increased left ventricular wall thickness. Right Ventricle Right ventricular chamber dimension is normal. Right ventricular systolic function is normal. Left Atria Left atrial chamber dimension is mildly enlarged. Right Atria Right atrial chamber dimension is normal. Aortic Valve The aortic valve is trileaflet. There is no aortic valve stenosis. Pulmonic Valve The pulmonic valve is not well visualized. There is no pulmonic regurgitation. Mitral Valve The mitral valve has normal leaflets. There is trace mitral valve regurgitation. Tricuspid Valve The tricuspid valve leaflets are normal. There is trace tricuspid valve regurgitation. Pericardium/Pleural The pericardium appears normal. There is no pericardial effusion. Aorta The aortic root size at the sinus of Valsalva is normal. Left Ventricular Outflow Tract Name Value Normal LVOT Doppler LVOT Peak Velocity 97 cm/s LVOT Peak Gradient 4 mmHg LVOT Mean Gradient 2 mmHg LVOT VTI 20 cm LVOT VTI/AV VTI Ratio 0.8 Pulmonic Valve Name Value Normal PV Doppler PV Peak Velocity 74 cm/s PV Peak Gradient 2 mmHg Mitral Valve Name Value Normal MV Doppler MV Peak Gradient 4 mmHg MV Mean Gradient 1 mmHg MV Decel [place] 183 cm/s2 MV PHT 86 ms MV Area (PHT) 2.5 cm2 4.0-5.0 MV Diastolic Function MV E Peak Velocity 55 cm/s MV A Peak Velocity 81 cm/s MV E/A 0.7 MV Decel Time 298 ms Tricuspid Valve Name Value Normal TV Regurgitation Doppler TR Peak Velocity 292 cm/s TR Peak Gradient 34 mmHg Aortic Valve Name Value Normal AV Doppler AV Peak Velocity 114 cm/s AV Peak Gradient 5 mmHg AV Mean Gradient 3 mmHg AV VTI 24 cm AV V1/V2 Ratio 0.85 Ventricles Name Value Normal LV Dimensions 2D/MM IVS Diastolic Thickness (2D) 0.8 cm 0.6-1.0 LVID Diastole (2D) 4.9 cm 3.8-5.2 LVIW Diastolic Thickness (2D) 0.7 cm 0.6-0.9 LVID Systole (2D) 3.6 cm 2.2-3.5 LV Mass (2D Cubed) 121.20 g 67.00-162.00 LV Mass Index (2D Cubed) 74 g/m2 43-95 Relative Wall Thickness (2D) 0.29 LV Fractional Shortening/Ejection Fraction 2D/MM LV Fractional Shortening (2D) 27 % 27-45 LV EF (2D Teicholz) 52 % 54-74 LV Diastolic Volume (4C MOD) 82 ml LV EF (4C MOD) 59 % LV Diastolic Length (4C) 7.0 cm LV Systolic Length (4C) 5.6 cm LV Stroke Volume (4C MOD) 48 ml Atria Name Value Normal LA Dimensions LA Volume (4C A-L) 56 ml RA Dimensions RA Area (4C) 11.7 cm2 <=18.0 Report Signatures
== END 2024-11-10 11:42 | disposition home or self-care (01) ==
LOC: CHSIMG 11:44
PROVIDERS: PCP Family Medicine; Visit Provider Nurse Practitioner
DX: R06.02 Shortness of breath (principal)
CPT/HCPCS: 93306

== ENCOUNTER 2024-12-05 12:19 | Outpatient (CLI) | payer MEDICARE, SELFPAY ==
--- NOTE | ~2024-12-05 | MM_ITS ---
EXAMINATION: MM screening bre BI w harvinder HISTORY: Screening TECHNIQUE: Craniocaudal and mediolateral oblique 3-D tomosynthesis images were obtained and synthetic 2-D images were generated. CAD analysis was submitted and interpreted. COMPARISON: Comparison to multiple prior studies sequentially, with oldest reviewed study dated 08/10. BREAST PARENCHYMAL COMPOSITION: Dense: The breasts are heterogeneously dense, which may obscure small masses FINDINGS: There is no evidence of suspicious mass, calcification, or architectural distortion to sugg est malignancy in either breast. There has been no suspicious interval change. IMPRESSION: 1. No mammographic evidence of malignancy. 2. Recommend routine screening mammography in one year. BI-RADS Category 1: Negative Reviewed, dictated and finalized at location A. T WOMAN
--- OUTSIDE RECORDS SUMMARY | 2024-12-05 12:56 | XMS_ITS | Clinical Summary ---
Author Organization [facility] Address [address] [place] [address] Care Team Providers Care Mortar Carrier Name Role Phone Diego Delatorre MD Primary Care Provider [phone] Source Comments [facility],non-[facility] Affiliates and Associated Physician Practices is amultiple site organization consisting of ambulatory clinics and hospital sitesin [place], [place], [place] and [place]. This disclosure is being madepursuant to the Care Everywhere program and may not contain all information available regarding this patient. Last updated 18.[facility] [employer] Social History Tobacco Use Types Packs/Day Years Used Date Smoking Tobacco: Never Assessed Sex and Gender Information Value Date Recorded Sex Assigned at Not on file Gender Identity Not on file Sexual Orientation Not on file Plan of Treatment Health Maintenance Due Date Last Done Comments BONE DENSITY TESTING 1950 COLOGUARD (AGES 45-75) - COL ON CA SCREENING 1950 COLON MONITORING 1950 COLONOSCOPY - COLON CA SCREENING 1950 CT COLONOGRAPHY - COLON CA SCREENING 1950 Colorectal Cancer Screening 1950 FIT - COLON CA SCREENING 1950 FLEX SIG - COLON CA SCREENING 1950 LIPID TESTING 1950 MAMMOGRAM 1950 HEPATITIS C SCREENING 05/29/1969 DTAP/TDAP/TD VACCINES (1 - Tdap) 1970 PNEUMOCOCCAL VACCINE 50+ (1 of 1 - PCV) 2001 ZOSTER VACCINE (1 of 2) 2001 COVID-19 VACCINE (2023-2 5 season) 2024 INFLUENZA VACCINE (#1) 2024 DEPRESSION SCREENING 11/09/2024 Respiratory Syncytial Virus (RSV) Vaccine Pt: or over 60 yrs (1 - 1-dose 75+ series) 2026 HEPATITIS B VACCINE Aged Out No longe r eligible based on patient's age to complete this topic HIB VACCINE Aged Out No longer eligi ble based on patient's age to complete this topic HPV VACCINE Aged Out No longer eligi ble based on patient's age to complete this topic MENINGOCOCCAL (Group B) VACCINE Aged Out No longer eligible based on patient's age to complete this topic MENINGOCOCCAL VACCINE Aged Out No rosanna manju eligible based on patient's age to complete this topic Care Teams Mortar Carrier Relationship Specialty Start Date End Date Diego Delatorre MD [address] [place] [phone] PCP - General Family Medicine 06/27/14
--- OUTSIDE RECORDS SUMMARY | 2024-12-05 12:56 | XMS_ITS | Referral Summary ---
Author Organization [facility] Address [address] [place] [address] Care Team Providers Care Destaticizer Feeder Name Role Phone Diego Delatorre MD Primary Care Provider [phone] Source Comments [facility] Affiliates and Associated Physician Practices is amultiple site organization consisting of ambulatory clinics and hospital sitesin [place], [place], [place] and [place]. This disclosure is being madepursuant to the Care Everywhere program and may not contain all information available regarding this patient. Last updated 18.[facility] Social History Tobacco Use Types Packs/Day Years Used Date Smoking Tobacco: Never Assessed Sex and Gender Information Value Date Recorded Sex Assigned at Not on file Gender Identity Not on file Sexual Orientation Not on file Plan of Treatment Not on file Care Teams Destaticizer Feeder Relationship Specialty Start Date End Date Diego Delatorre MD [address] [place] [id number] PCP - General Family Medicine 06/27/14
--- OUTSIDE RECORDS SUMMARY | 2024-12-05 12:56 | XMS_ITS | Patient Health Summary ---
Author Organization [facility] Address [address] [place] [address] Care Team Providers Care Superintendent Measurement Name Role Phone Diego Delatorre MD Primary Care Provider [phone] [facility],non-owned Affiliates and Associated Physician Practices is amultiple site organization consisting of ambulatory clinics and hospital sitesin [place], [place], [place] and [place]. This disclosure is being madepursuant to the Care Everywhere program and may not contain all information available regarding this patient. Last updated 18.[facility] Social History Tobacco Use Types Packs/Day Years Used Date Smoking Tobacco: Never Assessed Sex and Gender Information Value Date Recorded Sex Assigned at Not on file Gender Identity Not on file Sexual Orientation Not on file Procedures * XR FOOT BILAT 2VW(Performed 10/11/2014) Performed for Systemic sclerosis (HCC) * XR WRIST BILAT 2VW(Performed 10/11/2014) Performed for Systemic sclerosis (HCC) * XR ANKLE BILAT 2VW(Performed 10/11/2014) Performed for Systemic sclerosis (HCC) * XR HAND BILAT 2VW(Performed 10/11/2014) Performed for Systemic sclerosis (HCC) * XR ANKLE BILAT 2VW(Performed 06/27/2014) Performed for Systemic sclerosis (HCC) * XR FOOT BILAT 2VW(Performed 06/27/2014) Performed for Systemic sclerosis (HCC) Results * XR FOOT BILAT 2 VIEWS (10/11/2014 12:06 PM DISTRICT SERVICE MANAGER) Only the most recent of2 resultswithin the time period is included. Anatomical Region Laterality Modality Lower Extremity, Ankle / Foot Ra diographic Imaging 10/11/2014 12:0 7 PM DISTRICT SERVICE MANAGER Narrative 10/11/2014 12:49 PM DISTRICT SERVICE MANAGER Bilateral feet HISTORY: Scleroderma. Since 06/27/2014, there has been no change in the appearance of the feet. There is right hallux valgus deformity and degenerative change of the first metatarsophalangeal articulation and subchondral cysts. The osseous structures are otherwise normal. The joint spaces are otherwise preserved. DIAGNOSIS: No change, right hallux valgus deformity. Edited by Mia Rosen on 10/11/2014 12:36 PM Procedure Note Adeel Ch MD - 10/11/2014 Bilateral feet HISTORY: Scleroderma. Since 06/27/2014, there has been no change in the appearance of the feet. There is right hallux valgus deformity and degenerative change of the first metatarsophalangeal articulation and subchondral cysts. The osseous structures are otherwise normal. The joint spaces are otherwise preserved. DIAGNOSIS: No change, right hallux valgus deformity. Edited by Mia Rosen on 10/11/2014 12:36 PM Kasey Figueroa MD DIAGNOSTIC IMAGING O RDERABLES * XR WRIST BILAT 2 VIEWS (10/11/2014 12:06 PM DISTRICT SERVICE MANAGER) Anatomical Region Laterality Modality Wrist / Hand, Upper Extremity Ra diographic Imaging 10/11/2014 12:0 8 PM DISTRICT SERVICE MANAGER Narrative 10/11/2014 12:49 PM DISTRICT SERVICE MANAGER BILATERAL WRISTS, 4 VIEWS HISTORY: Scleroderma The texture and density of the osseous structures is normal. There is mild degenerative change of the first metacarpal phalangeal articulations, right greater than left. The carpal bone alignment is normal. There is no erosive arthropathy. DIAGNOSIS: Degenerative changes, first carpal metacarpal articulation. Edited by Cierra Suazo on 10/11/2014 12:41 PM Procedure Note Adeel Ch MD - 10/11/2014 BILATERAL WRISTS, 4 VIEWS HISTORY: Scleroderma The texture and density of the osseous structures is normal. There is mild degenerative change of the first metacarpal phalangeal articulations, right greater than left. The carpal bone alignment is normal. There is no erosive arthropathy. DIAGNOSIS: Degenerative changes, first carpal metacarpal articulation. Edited by Cierra Suazo on 10/11/2014 12:41 PM Kasey Figueroa MD DIAGNOSTIC IMAGING O RDERABLES * XR ANKLE BILAT 2 VIEWS (10/11/2014 12:06 PM DISTRICT SERVICE MANAGER) Only the most recent of2 resultswithin the time period is included. Anatomical Region Laterality Modality Ankle / Foot, Lower Extremity Ra diographic Imaging 10/11/2014 12:0 5 PM DISTRICT SERVICE MANAGER Narrative 10/11/2014 12:49 PM DISTRICT SERVICE MANAGER Bilateral ankles, 4 view HISTORY: Scleroderma Since 06/27/2014, there has been no change in the appearance of the tibiotalar articulation or talar domes which are normal. There is no joint effusion or fracture or joint space narrowing. No erosive arthropathy is present DIAGNOSIS: Normal. Edited by Mia Rosen on 10/11/2014 12:34 PM Procedure Note Adeel Ch MD - 10/11/2014 Bilateral ankles, 4 view HISTORY: Scleroderma Since 06/27/2014, there has been no change in the appearance of the tibiotalar articulation or talar domes which are normal. There is no joint effusion or fracture or joint space narrowing. No erosive arthropathy is present DIAGNOSIS: Normal. Edited by Mia Rosen on 10/11/2014 12:34 PM Kasey Figueroa MD DIAGNOSTIC IMAGING O RDERABLES * XR HANDS BILATERAL 2 VIEWS (10/11/2014 12:05 PM DISTRICT SERVICE MANAGER) Anatomical Region Laterality Modality Wrist / Hand, Upper Extremity Ra diographic Imaging 10/11/2014 12:0 6 PM DISTRICT SERVICE MANAGER Narrative 10/11/2014 12:49 PM DISTRICT SERVICE MANAGER BILATERAL HANDS, 2 VIEWS HISTORY: Scleroderma The texture and density of the osseous structures is normal. Mild degenerative change of the distal interphalangeal articulations, notably of the bilateral index fingers. No erosive arthropathy is present. The soft tissues are normal. DIAGNOSIS: Minimal degenerative change. Edited by Cierra Suazo on 10/11/2014 12:36 PM Procedure Note Adeel Ch MD - 10/11/2014 BILATERAL HANDS, 2 VIEWS HISTORY: Scleroderma The texture and density of the osseous structures is normal. Mild degenerative change of the distal interphalangeal articulations, notably of the bilateral index fingers. No erosive arthropathy is present. The soft tissues are normal. DIAGNOSIS: Minimal degenerative change. Edited by Cierra Suazo on 10/11/2014 12:36 PM Kasey Figueroa MD DIAGNOSTIC IMAGING O RDERABLES Care Teams Superintendent Measurement Relationship Specialty Start Date End Date Diego Delatorre MD [address] [place] [address] PCP - General Family Medicine 06/27/14
== END 2024-12-05 12:20 | disposition home or self-care (01) ==
LOC: CHSIMG 12:20
PROVIDERS: PCP Family Medicine; Visit Provider Family Medicine
DX: Z12.31 Encounter for screening mammogram for malignant neoplasm of breast (principal)
CPT/HCPCS: 77063; 77067

== ENCOUNTER 2025-01-19 11:56 | Outpatient (CLI) | payer MEDICARE, SELFPAY ==
--- NOTE | ~2025-01-19 | XR_ITS ---
EXAMINATION: XR skull min 4V DATE: 01/19/2025 12:38 INDICATION: Headache, unspecified. TECHNIQUE: 4 views of the skull were obtained. COMPARISON: None. FINDINGS: Alignment is normal. No fracture. IMPRESSION: 1. Normal skull. Reviewed, dictated and finalized at location B. IMPRESSION: 1. Normal skull.
== END 2025-01-19 11:57 | disposition home or self-care (01) ==
LOC: GOSHIMG 11:57
PROVIDERS: PCP Family Medicine; Visit Provider Family Medicine
DX: R51.9 Headache, unspecified (principal)
CPT/HCPCS: 70260

== ENCOUNTER 2025-04-12 13:24 | Outpatient (CLI) | payer MEDICARE, SELFPAY ==
--- NOTE | ~2025-04-12 | XR_ITS ---
EXAMINATION: XR chest 2V 04/12/2025 13:41 INDICATION: Shortness of breath. Pulmonary fibrosis. PROCEDURE: 2 view chest COMPARISON: 11/22/2019 FINDINGS: The lungs are clear. The cardiomediastinal silhouette is within normal limits. There are no pleural effusions. There is no pneumothorax suspected. The lungs are hyperinflated which is cons istent with, but not diagnostic of chronic obstructive pulmonary disease. IMPRESSION: 1: NO ACUTE CARDIOPULMONARY DISEASE. Reviewed, dictated and finalized at location A.
--- OUTSIDE RECORDS SUMMARY | 2025-04-12 13:28 | XMS_ITS | Continuity of Care Document ---
Author Organization [facility] [place] [address] [place] [address] Phone Care Team Providers Care Underwriting Clerk Name Role Phone Dejesus OD, Haris Unavailable [...] Copied on Encounter Office/outpat ient Visit, [facility], [address] [place] [address] [address], [place], [place], [address], [place] tel:[phone] [facility] No Information 4-201 0 Dejesus OD Haris. [address] , [address], [place], [address], [place]. tel:[phone] [facility], [address], [place], [place], [address], [place] tel:[phone] [facility] No Information 8-200 9 Dejesus OD Haris. [address] , [address], [place], [address], [place]. tel:[phone] Referring Provider: Haris Dejesus OD A, [facility], [place], [address]. tel:[phone] Office/outpat ient Visit, Est [facility], [address], [place], [place], [address], [place] tel:[phone] [facility] No Information Boyd-2 5-200 9 Dejesus OD Haris. [address] , [address], [place], [address], [place]. tel:[phone] [facility], [address], [place], [place], [address], [place] tel:[phone] [facility] No Information Jun-1 1-200 8 Dejesus OD Haris. [address] , [address], [place], [address], [place]. tel:[phone] Referring Provider: Haris Dejesus OD A, [facility], [place], [address]. tel:[phone] [facility], [address], [place], [place], [address], [place] tel:[phone] [facility] No Information Feb-2 4-200 8 Dejesus OD Haris. [address] , [address], [place], [address], [place]. tel:[phone] Referring Provider: Diego Delatorre, [address] [place], [address]. tel:[phone] [facility], [address], [place], [place], [address], [place] tel:[phone] [facility] No Information Martell-0 2-200 7 Dejesus OD Haris. [address] , [address], [place], [address], [place]. tel:[phone] Referring Provider: Haris Dejesus OD A, [address], [place], [address]. tel:[phone] [facility], [address], [place], [place], [address], tel:[phone] [facility] No Information Boyd-2 8-200 7 Djeesus OD Haris. [address] , [address], [place], [address], . tel:[phone] [facility], [address], [place], [place], [address], tel:[phone] [facility] No Information Dec-2 6-200 6 Dejesus OD Haris. [address] [facility] , [address], [place], [address], . tel:[phone] Family History Family Member Type Diagnosis Age At Onset No Information Payers Payer name Insurance type Covered constitution party ID Authoriza tion(s) No Information Social History [...]
--- OUTSIDE RECORDS SUMMARY | 2025-04-12 13:28 | XMS_ITS | Encounter Summary ---
Author Organization [facility] Address [address] [place] [address] Care Team Providers Care Planisher Name Role Phone Diego Delatorre MD Primary Care Provider + [phone] Diego Delatorre MD Primary Care Provider + [phone] Kieran Matias MD Primary Care Provider [phone] Kasey Figueroa MD Unavailable Haris Schaefer MD Unavailable [phone] Diego Delatorre MD Primary Care Provider + [phone] Diego Delatorre MD Primary Care Provider + [phone] Deisi Orr DO Primary Care Provider [phone]- [phone] Reason for Referral * (Routine) - Closed Specialty Diagnoses / Procedures Referred By Contac t Referred To Contact Procedures Pulmonary Function Test - [facility] Health Information Management [address] [place] [address] Phone: tel: fax: Referral ID Status Reason Start Date Expiration Date Visits Re quested Visits Authorized [id number] Closed 05/10/2019 11/18/2020 1 1 Encounter Details Date Type Department Care Team (Late st Contact Info) Description 08/10/2014 Orders Only [facility] Health Information Management [address] [place] [address] Diego Delatorre MD [address] [place] [address] Social History Tobacco Use Types Packs/Day Years Used Date Smoking Tobacco: Unknown Alcohol Use Standard Drinks/Week Comments No 0 (1 standard drink = 0.6 oz pur e alcohol) Comments Unknown Sex and Gender Information Value Date Recorded Sex Assigned at Not on file Legal 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 Female 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 Gender Identity Not on file Sexual Orientation Not on file documented as of this encounter Plan of Treatment Not on file documented as of this encounter Procedures Procedure Name Priority Date/Time Associated Diagnosis Comments PULMONARY FUNCTION TEST (PFT) Routine 08/10/2014 documented in this encounter Results * Pulmonary Function Test - (08/10/2014) Anatomical Region Laterality Modality PFT us Historical Provider MD PFT ORDERABLES Final Res ult documented in this encounter Visit Diagnoses Not on filedocumented in this encounter Care Teams Planisher Relationship Specialty Start Date End Date Diego Delatorre MD [address] [place] [address] PCP - General 02/06/17 08/05/17 Diego Delatorre MD [address] [place] [address] PCP - General 05/09/09 02/05/17 Kieran Matias MD [address] [place] [address] PCP - General Family Medicine 08/06/17 01/20/18 Diego Delatorre MD [address] [place] [address] PCP - General Family Medicine 01/21/18 04/18/18 Diego Delatorre MD [address] [place] [address] PCP - General 04/19/18 08/08/20 [place] [address] [address] PCP - General 08/09/20 [place] [address] [address] Rheumatology 09/14/17 [place] [address] [address] Gastroenterology 10/26/17 documented as of this encounter
--- OUTSIDE RECORDS SUMMARY | 2025-04-12 13:28 | XMS_ITS | Encounter Summary ---
Author Organization [facility] Address [address] [place] [address] Care Team Providers Care Manager Training Name Role Phone Diego Delatorre MD Primary Care Provider + [phone] Diego Delatorre MD Primary Care Provider + [phone] Kieran Matias MD Primary Care Provider [phone] Kasey Figueroa MD Unavailable Haris Schaefer MD Unavailable [phone] Diego Delatorre MD Primary Care Provider + [phone] Diego Delatorre MD Primary Care Provider + [phone] Deisi Orr DO Primary Care Provider [phone] Reason for Referral * (Routine) - Closed Specialty Diagnoses / Procedures Referred By Contac t Referred To Contact Procedures Pulmonary Function Test - [facility] [place] Information Management [address] [place] [address] Phone: tel: fax: Referral ID Status Reason Start Date Expiration Date Visits Re quested Visits Authorized [id number] Closed 05/10/2019 11/18/2020 1 1 Encounter Details Date Type Department Care Team (Late st Contact Info) Description 09/07/2014 Orders Only [facility] Information Management [address] [place] [address] Diego Delatorre MD [address] [place] [address] Social History Tobacco Use Types Packs/Day Years Used Date Smoking Tobacco: Unknown Alcohol Use Standard Drinks/Week Comments No 0 (1 standard drink = 0.6 oz pur e alcohol) Comments Unknown Sex and Gender Information Value Date Recorded Sex Assigned at Not on file Legal Sex Female 9: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 Gender Identity Not on file Sexual Orientation Not on file documented as of this encounter Plan of Treatment Not on file documented as of this encounter Procedures Procedure Name Priority Date/Time Associated Diagnosis Comments PULMONARY FUNCTION TEST (PFT) Routine 09/07/2014 documented in this encounter Results * Pulmonary Function Test - (09/07/2014) Anatomical Region Laterality Modality PFT us Historical Provider MD PFT ORDERABLES Final Res ult documented in this encounter Visit Diagnoses Not on filedocumented in this encounter Care Teams Manager Training Relationship Specialty Start Date End Date Diego Delatorre MD [address] [place] [address] PCP - General 02/06/17 08/05/17 Diego Delatorre MD [address] [place] [address] PCP - General 05/09/09 02/05/17 Kieran Matias MD [address] [place] [address] PCP - General Family Medicine 08/06/17 01/20/18 Diego Delatorre MD [address] [place] [address] PCP - General Family Medicine 01/21/18 04/18/18 Diego Delatorre MD [address] [place] [address] PCP - General 04/19/18 08/08/20 [place] [address] [address] PCP - General 08/09/20 [place] [address] [address] Rheumatology 09/14/17 [place] [address] [address] Gastroenterology 10/26/17 documented as of this encounter
--- OUTSIDE RECORDS SUMMARY | 2025-04-12 13:28 | XMS_ITS | Encounter Summary ---
Author Organization [facility] Address [address] [place] [address] Care Team Providers Care Acid Strength Inspector Name Role Phone Kasey Figueroa MD Unavailable Haris Schaefer MD Unavailable [phone] Diego Delatorre MD Primary Care Provider [phone] Deisi Orr DO Primary Care Provider [phone]- [phone] Encounter Details Date Type Department Care Team (Late st Contact Info) Description 08/08/2020 Telephone [facility] [address] [place] [address] Melanie Thakur, RT Social History Tobacco Use Types Packs/Day Years Used Date Smoking Tobacco: Former Cigarettes Q uit: 1991 Smokeless Tobacco: Never Alcohol Use Standard Drinks/Week Comments No 0 (1 standard drink = 0.6 oz pur e alcohol) Comments Unknown Sex and Gender Information Value Date Recorded Sex Assigned at Not on file 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 Gender Identity Not on file Sexual Orientation Not on file 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 Not on file Not on file Not o n file documented as of this encounter Plan of Treatment Not on file documented as of this encounter Visit Diagnoses Not on filedocumented in this encounter Care Teams Acid Strength Inspector Relationship Specialty Start Date End Date Diego Delatorre MD [address] [place] [address] PCP - General 04/19/18 08/08/20 Deisi Orr DO [address] [place] [address] PCP - General 08/09/20 [place] [address] [address] Rheumatology 09/14/17 [place] [address] [address] Gastroenterology 10/26/17 documented as of this encounter
--- OUTSIDE RECORDS SUMMARY | 2025-04-12 13:28 | XMS_ITS | Encounter Summary ---
Author Organization [facility] Address [address] [place] [address] Care Team Providers Care Metal Sponge Making Machine Operator Name Role Phone Diego Delatorre MD Primary Care Provider + [phone] Diego Delatorre MD Primary Care Provider + [phone] Kieran Matias MD Primary Care Provider [phone] Kasey Figueroa MD Unavailable Haris Schaefer MD Unavailable [phone] Diego Delatorre MD Primary Care Provider + [phone] Diego Delatorre MD Primary Care Provider + [phone] Deisi Orr DO Primary Care Provider [phone] Reason for Referral * Diagnostic Imaging (Routine) - Closed Specialty Diagnoses / Procedures Referred By Contac t Referred To Contact Procedures XR Chest Pa Lateral 2 Views [facility] Health Information Management [address] [place] [address] Phone: tel: fax: Referral ID Status Reason Start Date Expiration Date Visits Re quested Visits Authorized [id number] Closed 05/10/2019 11/18/2020 1 1 Encounter Details Date Type Department Care Team (Late st Contact Info) Description 07/12/2014 Orders Only [facility] Health Information Management [address] [place] [address] Diego Delatorre MD [address] [place] [address] Social History Tobacco Use Types Packs/Day Years Used Date Smoking Tobacco: Unknown Alcohol Use Standard Drinks/Week Comments No 0 (1 standard drink = 0.6 oz pur e alcohol) Comments Unknown Sex and Gender Information Value Date Recorded Sex Assigned at Not on file 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 Gender Identity Not on file Sexual Orientation Not on file documented as of this encounter Plan of Treatment Not on file documented as of this encounter Procedures Procedure Name Priority Date/Time Associated Diagnosis Comments XR CHEST PA LATERAL 2 VIEWS Schedule Routine, Read Routine (OP Routine) 07/12/2014 documented in this encounter Results * XR Chest Pa Lateral 2 Views (07/12/2014) Anatomical Region Laterality Modality Body, Chest N/A Radiographic Lu ging us Historical Provider MD [place] XR PROCEDURES Final R esult documented in this encounter Visit Diagnoses Not on filedocumented in this encounter Care Teams Metal Sponge Making Machine Operator Relationship Specialty Start Date End Date Diego Delatorre MD [address] [place] [address] PCP - General 02/06/17 08/05/17 Diego Delatorre MD [address] [place] [address] PCP - General 05/09/09 02/05/17 Kieran Matias MD [address] [place] [address] PCP - General Family Medicine 08/06/17 01/20/18 Diego Delatorre MD [address] [place] [address] PCP - General Family Medicine 01/21/18 04/18/18 Diego Delatorre MD [address] [place] [address] PCP - General 04/19/18 08/08/20 [place] [address] [address] PCP - General 08/09/20 [place] [address] [address] Rheumatology 09/14/17 [place] [address] [address] Gastroenterology 10/26/17 documented as of this encounter
--- OUTSIDE RECORDS SUMMARY | 2025-04-12 13:28 | XMS_ITS | Clinical Summary ---
Author Organization [facility] Address [address] [place] [address] Care Team Providers Care Drawer In Plain Loom Name Role Phone Diego Delatorre MD Primary Care Provider [phone] Source Comments [facility],non-[facility] Affiliates and Associated Physician Practices is amultiple site organization consisting of ambulatory clinics and hospital sitesin [place], [place], [place] and [place]. This disclosure is being madepursuant to the Care Everywhere program and may not contain all information available regarding this patient. Last updated 18.[facility] Social History Tobacco Use Types Packs/Day Years Used Date Smoking Tobacco: Never Assessed Comments Unknown Sex and Gender Information Value Date Recorded Sex Assigned at Not on file Legal Sex Female 11:51 AM CDT Gender Identity Not on file Sexual Orientation [...] VACCINE (1 of 2) 2001 COVID-19 VACCINE (1 - 2023-2 5 season) 2024 DEPRESSION SCREENING 11/09/2024 INFLUENZA VACCINE (Season Ended) 2025 Respiratory Syncytial Virus (RSV) Vaccine Pt: or [...] to complete this topic MENINGOCOCCAL (Group B) VACC INE SHARED DECISION-MAKING Aged Out No longer eligibl e based on patient's age to complete this topic MENINGOCOCCAL GROUPS A/C/Y/W VACCINE Aged Out No longer eligible b ased on patient's age to complete this topic Insurance [employer] Care Teams Drawer In Plain Loom Relationship Specialty Start Date End Date Diego Delatorre MD [address] [place] [id number] PCP - General Family Medicine 06/27/14
--- OUTSIDE RECORDS SUMMARY | 2025-04-12 13:29 | XMS_ITS | Clinical Summary ---
Author Organization [facility] [address] [facility] Address [address] [place] [id number] Phone Care Team Providers Care Grocery Store Associate Name Role Phone Kasey Figueroa MD Unavailable Haris Schaefer MD Unavailable [phone] Deisi Orr DO Primary Care Provider [phone] Allergies Active Allergy Reactions Criticality Noted Date Comments Cortisone Hydrocortisone Vomiting Reaction: vomiting, Medications simvastatin (ZOCOR) 10 mg tablet take 1 tablet by oral route every day in the evening 0 [address] (NexIUM) 40 mg capsule take 1 capsule by oral route every day 0 0 5 Active Additional Information Patient taking differently:40 mgoral 2 times daily, Reported on 04/19/2018 losartan (COZAAR) 50 mg tablet take 1 tablet by oral route every day 0 0 5 Active hydroxychloroqu ine (PLAQUENIL) 200 mg tablet Take 1 tablet (200 mg total) by mouth 2 (two) times a day. 180 tablet 8 Active amitriptyline-c hlordiazePOXIDE (LIMBITROL) 25-10 mg tablet Take 1 tablet by mouth 2 (two) times a day. 1 8 Active metFORMIN XR (GLUCOPHAGE XR) 500 mg 24 hr tablet Take 1 tablet (500 mg total) by mouth daily with breakfast. 30 tablet 11 8 Active hydroCHLOROthia zide (HYDRODIURIL) 25 mg tablet Take 25 mg by mouth daily Active propranoloL (INDERAL) 10 mg tablet Take 10 mg by mouth every 12 (twelve) hours Active Active Problems Problem Noted Date Diagnosed Date Dysphagia 05/29/2021 Overview (05/29/2021): Added automatically from request for surgery [id number] Obstructive sleep apnea 03/25/2019 Assessment & Plan (04/05/2019 8:14 AM CDT): She was diagnosed with obstructive sleep apnea long time ago and currently she is on CPAP therapy. She states that she is compliant with CPAP therapy however her CPAP compliance/efficiency data is not available for review. Dyspnea on exertion 03/25/2019 Assessment & Plan (04/05/2019 8:11 AM CDT): The cause of exertional shortness of breath is most probably interstitial lung disease a complication of scleroderma. Physical deconditioning and chronic anemia both may play a role. PFT, 6 minutes walk test and HRCT were ordered. BMI 27.0-27.9,adult 03/25/2019 Assessment & Plan (04/05/2019 8:05 AM CDT): Stable BMI. No weight loss over the past 6 months. Scleroderma 03/25/2019 Assessment & Plan (04/05/2019 8:07 AM CDT): She was diagnosed with Calcinosis, Raynaud phenomenon, esophageal dysfunction, sclerodactyly, and telangiectasia (CREST) syndrome long time ago. She was advised to continue follow-up with her peritoneal dialysis registered nurse. Nausea 09/22/2017 Assessment & Plan (09/22/2017 11:07 AM SPACE PLANNER): Informed to f/u with her gi for this. Will check vitamin a, b12 and d again to rule out a scleroderma involvement. Chest pain 09/22/2017 Assessment & Plan (09/22/2017 11:11 AM SPACE PLANNER): Informed that she should go to the ER if she were to get cp again as the next one could be the last one. Vitamin D deficiency 09/22/2017 Assessment & Plan (09/22/2017 11:11 AM SPACE PLANNER): On supplementation, but will check vit d again today with labs. Gout 07/10/2017 Assessment & Plan (04/28/2018 10:32 AM CDT): Patient's uric acid was 2.5. She continues on allopurinol. Assessment & Plan (01/21/2018 9:25 AM CDT): She is having pain in the right big toe. [facility] had labs [facility] Dec so I am planning on checking labs in March with the labs she is getting for her pcp. I am adding an uric acid level Assessment & Plan (09/22/2017 11:55 AM SPACE PLANNER): No gout flares. Uric acid has been normal. Will check at her next ov. Assessment & Plan (07/10/2017 10:16 AM CDT): No gout flares. will check uric acid. prison use of drug 07/10/2017 Assessment & Plan (04/28/2018 10:32 AM CDT): Will continue to monitor the patient with routine labs. Assessment & Plan (09/22/2017 11:11 AM SPACE PLANNER): Labs today. Bilateral shoulder pain 07/10/2017 Assessment & Plan (09/22/2017 8:40 AM SPACE PLANNER): Bilateral shoulders, could be rotator cuff pathology. Xrays show oa. Discussed doing physical therapy, but she is hesitant. MRI usually is not covered unless there is documented physical therapy. Assessment & Plan (07/10/2017 10:29 AM CDT): Bilateral shoulders, could be rotator cuff pathology. Xrays show oa. Discussed doing physical therapy, but she is hesitant. MRI usually is not covered unless there is documented physical therapy. Calcinosis, Raynaud phenomen on, esophageal dysfunction, sclerodactyly, and telangiectasia (CREST) syndrome 09/12/2014 Overview (02/12/2017): CREST syndrome Assessment & Plan (04/05/2019 8:05 AM CDT): She was diagnosed with CREST long time ago. AVISE in 2017 also showed positive JOSE LUIS and anti CENP. Currently she is on Plaquenil. She was advised to continue follow-up with her peritoneal dialysis registered nurse. Assessment & Plan (04/28/2018 10:31 AM CDT): Previous AVISE done last year with JOSE LUIS and CENP. Patient disease activity is low. Patient is to continue HCQ. Will check routine labs today along with AVISE. Will repeat PFTS and echo to monitor for pulmonary HTN. Assessment & Plan (01/21/2018 9:18 AM CDT): She has Had a recent PFT thru pulmonology and an EGD with GI and according to her both these tests were normal. She did worse thru this winter due to the colder weather. She does in warmer weather and [place] She noticed more joint pain. She has been focusing on eating healthier and a room cleaner lifestyle She had an AVISE last year and was noted to have a positive JOSE LUIS and anti CENP. Assessment & Plan (09/22/2017 11:05 AM SPACE PLANNER): Stable with hcq bid. Will check labs today. AVISE from last ov shows +JOSE LUIS and +anti CENP ab c/w CREST syndrome diagnosis. Due to get PFT's and echo with pulp drier, getting them today. Informed to get those as they would help us tell how she is doing. F/u 3 mos, sooner if needed. Pt seen with Dr. Figueroa. Assessment & Plan (07/10/2017 10:18 AM CDT): Stable with hcq bid. Will check labs today. AVISE from last ov shows +JOSE LUIS and +anti CENP ab c/w CREST syndrome diagnosis. Due to get PFT's and echo with pulp drier. Informed to get those as they would help us tell how she is doing. F/u 3 mos, sooner if needed. Hypertension 09/12/2014 Overview (02/12/2017): HTN - Hypertension Diabetes mellitus 09/12/2014 Overview (02/12/2017): Diabetes Adverse reaction to substance 03/25/2014 Overview (02/11/2017): ADV EFF MED/BIOL SUB NOS Immunizations Immunization Administration Dates Next Due Influenza, Split 09/29/2013 Influenza, Unspecified 08/17/2017 Pneumococcal Conjugate, Unspecified 08/17/2017 Surgical History Surgery Date Site/Laterality Comments OTHER SURGICAL HISTORY 11/09/2009 - 11/08/2010 Left nodule removed from ring finger CHOLECYSTECTOMY Cholecystectomy OTHER SURGICAL HISTORY shoulder surgery HYSTERECTOMY TYMPANOPLASTY Medical History Medical History Date Comments Calcinosis, Raynaud phenomen on, esophageal dysfunction, sclerodactyly, and telangiectasia (CREST) syndrome (HCC) CREST syndrome Hypertension Hypertension Diabetes mellitus (HCC) Diabetes mellitus Hx Other Medical 10/2016 Wrist FX; Comme nts: JNG 11/28/2016 -; Laterality: left Gout GERD (gastroesophageal reflux disease) Headache Hyperlipidemia Scleroderma (HCC) Sleep apnea Family History Medical History Relation Name Comments Colon cancer Brother 1 Bairon Cancer Brother 2 Isael colon polyp can cer Cancer Brother 3 Steve throat and lung cancer No Known Problems Daughter Elba Colon cancer Father Norman Arthritis Mother Tiffanie Hypertension Mother Tiffanie Breast cancer Mother's Sister Cancer Other 1 Family history of Cancer, unknown; Diabetes type II Other 2 Family hist ory of Diabetes mellitus type 2; Rheum arthritis Other 3 Family histo ry of Rheumatoid arthritis; Arthritis Sister 1 Elsi Hypertension Sister 2 Radha Cancer Sister 3 Liliana colon Hypertension Sister 3 Liliana No Known Problems Son Yobani Relation Name Status Comments Brother 1 Bairon (Age 58) Brother 2 Isael Alive Brother 3 Steve Alive Daughter Elba Alive Father Norman (Age 82) Mother Tiffanie Alive Mother's Sister Other 1 Other 2 Other 3 Sister 1 Elsi Alive Sister 2 Radha Alive Sister 3 Liliana Alive Son Yobani Alive Social History Tobacco Use Types Packs/Day Years Used Date Smoking Tobacco: Former Cigarettes Q uit: 1991 Smokeless Tobacco: Never Alcohol Use Standard Drinks/Week Comments No 0 (1 standard drink = 0.6 oz pur e alcohol) AUDIT-C Answer Date Recorded Q1: How often do you have a drink containing alc ohol? Monthly or less 06/07/2021 Q2: How many drinks containi ng alcohol do you have on a typical day when you are drinking? 1 or 2 06/07/2021 Q3: How often do you have si x or more drinks on one occasion? 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 Not on file Not on file Not o n file Obstetrics History Last Filed Vital Signs Vital Sign Reading Time Taken Comments Blood Pressure 135/71 06/07/2021 1:50 PM CDT Pulse 71 06/07/2021 1:50 PM CDT Temperature 36.7 C (98 F) 06/07/2021 1:50 PM CDT Respiratory Rate 18 06/07/2021 1:50 PM CDT Oxygen Saturation 100% 06/07/2021 1:50 PM CDT Inhaled Oxygen Concentration - - Weight 66.7 kg (147 lb) 06/07/2021 11:38 AM CDT Height 162.6 cm (5' 4) 06/07/2021 11:38 AM CDT Body Mass Index 25.23 06/07/2021 11:38 AM CDT Plan of Treatment Health Maintenance Due Date Last Done Comments Albumin Creatinine Ratio, Urine 1951 Colon Cancer Screening-Colonoscopy 1950 Hepatitis C Screening 1950 Dilated Eye Exam 1951 Foot Exam 1950 DTaP/Tdap/Td Vaccine (1 - Tdap) 1962 Hepatitis B Screening 1969 Zoster Vaccine (1 of 2) 1970 Lipid Panel 09/29/2014 09/29/2013 Hemoglobin A1C 04/11/2015 10/11/2014 Well Visit 65+ 2016 Osteoporosis Screening-Bone Density Scan 08/01/2018 08/01/2016 Depression Screening 04/19/2019 04/19/2018 eGFR 04/23/2019 04/23/2018, 09/11, 07/10/2017, Additional history exists Breast Cancer Screening-Mammogram 06/02/2019 06/02/2018, 08/01/2016, 03/30/2015 Fall Risk Assessment 06/07/2022 06/07/2021, 04/19/20 18 Influenza Vaccine (Season Ended) 2025 08/04/2019, 09/10/2018, 08/17/2017, Additional history exists Pneumococcal vaccine 65+ Completed 09/28/2018, 07/2017 Procedures Procedure Name Priority Date/Time Associated Diagnosis Comments SCREENING MAMMOGRAM BILATERAL W RAMSES Schedule Routine, Read Routine (OP Routine) 06/02/2018 12:46 PM CDT Breast cancer screening COMPREHENSIVE METABOLIC PANEL Routine 04/23/2018 8:00 AM CDT Encounter for long-term (current) use of medications DEXA AXIAL SKELETON BONE DENSITY 1 OR MORE SITES Routine 08/01/2016 11:41 AM CDT HEMOGLOBIN A1C Routine 10/11/2014 9:46 AM SPACE PLANNER SERUM LIPID PANEL Routine 09/29/2013 6:2 4 AM SPACE PLANNER from Last 3 Months or Most Recently Relevant to Health Maintenance Results * SCREENING MAMMOGRAM BILATERAL W RAMSES (06/02/2018 12:46 PM CDT) Anatomical Region Laterality Modality Breast Bilateral Mammography 06/02/2018 12:4 9 PM CDT Impressions 06/02/2018 12:53 PM CDT 1. NO FINDINGS SUSPICIOUS FOR MALIGNANCY. 2. ANNUAL FOLLOW-UP RECOMMENDED. BI-RADS 1--negative Electronically signed by: Saad Loera Jr., M.D. Narrative 06/02/2018 12:53 PM CDT SCREENING MAMMOGRAM BILATERAL W RAMSES HISTORY: Encounter for screening mammogram for malignant neoplasm of breast. Family history of breast cancer (maternal aunt). TECHNIQUE: Craniocaudal and mediolateral oblique views of each breast as well as exaggerated lateral craniocaudal view of left breast were obtained with bilateral breast tomosynthesis. COMPARISON: 08/01/2016, 03/30/2015, 06/24/2012. FINDINGS: The breasts are heterogeneously dense. No dominant mass, skin thickening, nipple retraction or suspicious cluster of microcalcifications is seen. Digital technology was employed plus computer aided detection software (R2) was utilized in interpretation of these images. This facility utilizes a reminder system to notify patient's of yearly mammograms. Kieran Matias MD IMG MAMMO PROCEDURES Anabell l Result * (ABNORMAL) Comprehensive metabolic panel (04/23/2018 8:00 AM CDT) Glucose 132(H) 65 - 99 mg/dL [facility] [place] Comment: Fasting reference interval For someone without known diabetes, a glucose value >125 mg/dL indicates that they may have diabetes and this should be confirmed with a follow-up test. BUN 12 7 - 25 mg/dL [facility] [place] Creatinine 0.89 0.50 - 0.99 mg/dL [facility] [place] Comment: For patients >49 years of age, the reference limit for Creatinine is approximately 13% higher for people identified as -Belgian. eGFR NON-AFR. [facility] 68 > OR = 60 mL/min/1 .73m2 [facility] [place] EGFR 78 > OR = 60 mL/min/1 .73m2 [facility] [place] BUN/creat ratio NOT APPLICABLE 6 - 22 (calc) [facility] [place] Sodium 141 135 - 146 mmol/L [facility] [place] Potassium, pl 3.8 3.5 - 5.3 mmol/L [facility] [place] Chloride 101 98 - 110 mmol/L [facility] [place] CO2 29 20 - 31 mmol/L [facility] [place] Calcium 10.1 8.6 - 10.4 mg/dL [facility] [place] Protein, sr 6.8 6.1 - 8.1 g/dL [facility] [place] Albumin 4.7 3.6 - 5.1 g/dL [facility] [place] GLOBULIN 2.1 1.9 - 3.7 g/dL (calc) [facility] [place] Alb/glob ratio 2.2 1.0 - 2.5 (calc) [facility] [place] Bilirubin, total 0.4 0.2 - 1.2 mg/dL [facility] [place] Alk phos 48 33 - 130 U/L [facility] [place] AST 20 10 - 35 U/L [facility] [place] ALT (SGPT) 13 6 - 29 U/L [facility] Blood specimen (specimen) 04/23/2018 8:00 AM CDT 04/23/2018 8:01 AM CDT Narrative [facility] - 04/24/2018 11:31 AM CDT FASTING:YES FASTING: YES Resulting Agency Comment Performing Organization Information: Site ID: [id number] Name: [facility] Address: [address] [address] Director: Sunil Fischer D.O., MPH us Kasey Figueroa MD LAB BLOOD ORDERABLES Final Resul t [facility] * Dexa Axial Skeleton Bone Density 1 or 2 Site (08/01/2016 11:41 AM CDT) Anatomical Region Laterality Modality Body N/A Radiographic Lu ging 08/01/2016 11:4 1 AM CDT Narrative 08/02/2016 1:28 PM CDT DEXA Bone Density Axial Acc#: [id number] DATE OF EXAM: Aug 01 2016 CLINICAL HISTORY: Screen for osteoporosis. Post-menopausal. RESULT: DXA LEFT HIP RESULTS SUMMARY: BMD (g/cm'b2) T-score Z-score Neck 0.753 -0.9 0.6 Total 0.841 -0.8 0.4 DXA L-SPINE RESULTS SUMMARY: BMD (g/cm'b2) T-score Z-score L1 0.810 -1.6 -0.1 L2 0.909 -1.1 0.7 L3 0.973 -1.0 0.8 L4 0.936 -1.1 0.8 Total 0.912 -1.2 0.5 IMPRESSION: 1. FOR THE LUMBAR SPINE W.H.O. CLASSIFICATION IS OSTEOPENIA. 2. FOR THE HIP W.H.O. CLASSIFICATION IS NORMAL. COMMENT: W.H.O. defines the T-score of between -1 and -2.5 as osteopenia, the level at which there may be an increased risk of developing osteoporosis and fractures in the future. Osteoporosis is defined as T-score lower than -2.5 (significantly increased risk of fracture due to osteoporosis). T-score is a comparison to peak bone mineral density of young adult reference population. Z-score is a comparison to bone mineral density of sex and age group population. Interpreting Physician: ANGEL CORTEZ M.D. Read on: Aug 01 2016 11:54A Transcribed by: leona On: Aug 01 2016 8:31P Approved Electronically by: ANGEL CORTEZ M.D. on: Aug 02 2016 1:28P Attending: ORALIA DILLON Requesting: ORALIA DILLON Requesting Fax: -- Attending Fax: -- Attending ID: [id number] Requesting ID: [id number] Report To 1 ID: [id number] Report To 1 Name: ORALIA DILLON Report To 1 FAX: -- NextGen Order #: Procedure Note Provider, MD Chintan - 03/10/2017 DEXA Bone Density Axial Acc#: [id number] DATE OF EXAM: Aug 01 2016 CLINICAL HISTORY: Screen for osteoporosis. Post-menopausal. RESULT: DXA LEFT HIP RESULTS SUMMARY: BMD (g/cm'b2) T-score Z-score Neck 0.753 -0.9 0.6 Total 0.841 -0.80.4 DXA L-SPINE RESULTS SUMMARY: BMD (g/cm'b2) T-score Z-score L1 0.810 -1.6 -0.1 L2 0.909 -1.1 0.7L3 0.973 -1.0 0.8 L4 0.936 -1.1 0.8 Total 0.912 -1.2 0.5 IMPRESSION: 1. FOR THE LUMBAR SPINE W.H.O. CLASSIFICATION IS OSTEOPENIA. 2. FOR THE HIP W.H.O. CLASSIFICATION IS NORMAL. COMMENT: W.H.O. defines the T-score of between -1 and -2.5 as osteopenia, thelevel at which there may be an increased risk of developing osteoporosisand fractures in the future. Osteoporosis is defined as T-score lowerthan -2.5 (significantly increased risk of fracture due to osteoporosis).T-score is a comparison to peak bone mineral density of young adultreference population. Z-score is a comparison to bone mineral density ofsex and age group population. Interpreting Physician: ANGEL CORTEZ M.D. Read on: Aug 01 2016 11:54A Transcribed by: leona On: Aug 01 2016 8:31P Approved Electronically by: ANGEL CORTEZ M.D. on: Aug 02 2016 1:28P Attending: ORALIA DILLON Requesting: ORALIA DILLON Requesting Fax: -- Attending Fax: -- Attending ID: [id number] Requesting ID: [id number] Report To 1 ID: [id number] Report To 1 Name: ORALIA DILLON Report To 1 FAX: -- NextGen Order #: us Historical Provider IMLynne DXA PROCEDURES Final Result * (ABNORMAL) Hemoglobin A1c (10/11/2014 9:46 AM SPACE PLANNER) Hgb A1C 7.2(H) <5.7 % of total Hgb [facility] Comment: According to ADA guidelines, hemoglobin A1c <7.0% represents optimal control in non- diabetic patients. Different metrics may apply to specific patient populations. Standards of Medical Care in Diabetes-2013. Diabetes Care. 2013;36:s11-s66 For the purpose of screening for the presence of diabetes <5.7% Consistent with the absence of diabetes 5.7-6.4% Consistent with increased risk for diabetes (prediabetes) >or=6.5% Consistent with diabetes This assay result is consistent with diabetes mellitus. Currently, no consensus exists for use of hemoglobin A1c for diagnosis of diabetes for children. Test [facility] [address] [place] [address] Director: SUNIL FISCHER DO,MPH 10/11/2014 9:46 AM SPACE PLANNER Kasey Figueroa MD LAB BLOOD ORDERABLES Final Resul t [facility]ORICAL RESULTS * (ABNORMAL) Serum lipid panel (09/29/2013 6:24 AM SPACE PLANNER) Cholesterol 163 125 - 200 mg/dl HISTORICAL RESULTS HDL 43(L) > OR = 46 mg/dl HISTORICAL RESULTS Triglycerides 120 <150 mg/dl HISTO RICAL RESULTS LDL 96 <130 mg/dl HISTORICA L RESULTS Comment: Desirable range <100 mg/dL for patients with CHD or diabetes and <70 mg/dL for diabetic patients with known heart disease. Chol/HDL ratio 3.8 < OR = 5.0 calc HISTORICAL RESULTS Non-HDL cholesterol, calculated 120 mg/dl HISTORICAL RESULTS Comment: Target for non-HDL cholesterol is 30 mg/dL higher than LDL cholesterol target. Serum 09/29/2013 6:24 AM SPACE PLANNER Narrative HISTORICAL RESULTS - 10/02/2013 4:00 PM SPACE PLANNER Test performed at [facility] [employer] [address] [place] [address] Director: SUNIL FISCHER DO,MPH us Historical Provider LAB BLOOD ORDERABLES Anabell jacques Result HISTORICAL RESULTS from Last 3 Months or Most Recently Relevant to Health Maintenance Insurance [facility] Address: [address] [address] [place] [address] MEDICARE [employer] SIG [id number] [facility] MEDIC[facility] Address: [address] [address] [place] [address] [facility] Address: [address] [address] [place] [address] Advance Directives For more information, please contact: [phone] Documents on File Type Date Recorded Patient Cigar Roller Expl anation ADVANCE DIRECTIVE 06/28/2018 7:57 PM Care Teams Grocery Store Associate Relationship Specialty [place] [id number] [address] PCP - General 08/09/20 [place] [id number] [address] Rheumatology 09/14/17 [place] [id number] [address] Gastroenterology 10/26/17
--- OUTSIDE RECORDS SUMMARY | 2025-04-12 13:29 | XMS_ITS | Referral Summary ---
Author Organization [facility] [address] [facility] Address [address] [place] [address] Phone Care Team Providers Care Change Control Specialist Name Role Phone Kasey Figueroa MD Unavailable Haris Schaefer MD Unavailable [phone] Deisi Orr DO Primary Care Provider [phone] Allergies Active Allergy Reactions Criticality Noted Date [...] (05/29/2021): Added automatically from request for surgery [id number] Obstructive sleep apnea 03/25/2019 Assessment & Plan [...] was advised to continue follow-up with her specification consultant. Nausea 09/22/2017 Assessment & Plan (09/22/2017 11:07 AM MACHINE TRIMMER): Informed to f/u with her gi for this. Will check vitamin a, b12 and d again to rule out a scleroderma involvement. Chest pain 09/22/2017 Assessment & Plan (09/22/2017 11:11 AM MACHINE TRIMMER): Informed that she should go to the ER if she were to get cp again as the next one could be the last one. Vitamin D deficiency 09/22/2017 Assessment & Plan (09/22/2017 11:11 AM MACHINE TRIMMER): On supplementation, but will check vit d again today with labs. Gout 07/10/2017 Assessment & Plan (04/28/2018 10:32 AM CDT): Patient's uric acid was 2.5. She continues on allopurinol. Assessment & Plan (01/21/2018 9:25 AM CDT): She is having pain in the right big toe. [facility] Pen[facility] had labs in Dec so I am planning on checking labs in March with the labs she is getting for her pcp. I am adding an uric acid level Assessment & Plan (09/22/2017 11:55 AM MACHINE TRIMMER): No gout flares. Uric acid has been normal. Will check at her next ov. Assessment & Plan (07/10/2017 10:16 AM CDT): No gout flares. will check uric acid. USP use of drug 07/10/2017 Assessment & Plan (04/28/2018 10:32 AM CDT): Will continue to monitor the patient with routine labs. Assessment & Plan (09/22/2017 11:11 AM MACHINE TRIMMER): Labs today. Bilateral shoulder pain 07/10/2017 Assessment & Plan (09/22/2017 8:40 AM MACHINE TRIMMER): Bilateral shoulders, could be rotator cuff pathology. [...] was advised to continue follow-up with her specification consultant. Assessment & Plan (04/28/2018 10:31 AM CDT): [...] year will plan on going back to [place]. She noticed more joint pain. She has been focusing on eating healthier and a electrode cleaner lifestyle She had an AVISE last year and was noted to have a positive JOSE LUIS and anti CENP. Assessment & Plan (09/22/2017 11:05 AM MACHINE TRIMMER): Stable with hcq bid. Will check labs today. AVISE from last ov shows +JOSE LUIS and +anti CENP ab c/w CREST syndrome diagnosis. Due to get PFT's and echo with lay out carpenter, getting them today. Informed to get those [...] Due to get PFT's and echo with lay out carpenter. Informed to get those as they would help us tell how she is doing. F/u 3 mos, sooner if needed. 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 Not on file Not on file Not o n file Last Filed Vital Signs Vital Sign Reading [...] 06/07/2021 11:38 AM CDT Plan of Treatment Not on file Procedures Procedure Name Priority Date/Time Associated Diagnosis Comments SCREENING MAMMOGRAM BILATERAL W RAMSES Schedule Routine, Read Routine (OP Routine) 06/02/2018 12:46 PM CDT Breast cancer screening COMPREHENSIVE METABOLIC PANEL Routine 04/23/2018 8:00 AM CDT Encounter for long-term (current) use of medications DEXA AXIAL SKELETON BONE DENSITY 1 OR MORE SITES Routine 08/01/2016 11:41 AM CDT HEMOGLOBIN A1C Routine 10/11/2014 9:46 AM MACHINE TRIMMER SERUM LIPID PANEL Routine 09/29/2013 6:2 4 AM MACHINE TRIMMER from Last 3 Months or Most Recently [...] CDT) Glucose 132(H) 65 - 99 mg/dL [facility] [place] Comment: Fasting reference interval For someone without known diabetes, a glucose value >125 mg/dL indicates that they may have diabetes and this should be confirmed with a follow-up test. BUN 12 7 - 25 mg/dL [facility] [place] Creatinine 0.89 0.50 - 0.99 mg/dL [facility] [place] Comment: For patients >49 years of age, the reference limit for Creatinine is approximately 13% higher for people identified as -[place]an. eGFR NON-AFR. MALTESE 68 > OR = 60 mL/min/1 .73m2 [...] ALT (SGPT) 13 6 - 29 U/L [facility] [place] Blood specimen (specimen) 04/23/2018 8:00 AM CDT 04/23/2018 8:01 AM CDT Narrative [facility] - 04/24/2018 11:31 AM CDT FASTING:YES FASTING: YES Resulting Agency Comment Performing Organization Information: Site ID: [place] Name: [facility] Address: [address] [address] Director: Sunil Farrar D.O., MPH us Kasey Figueroa MD LAB BLOOD ORDERABLES Final Resul t [facility] [place] Driver * Dexa Axial Skeleton Bone Density 1 or 2 Site (08/01/2016 11:41 AM CDT) Anatomical Region Laterality Modality Body N/A Radiographic Lu ging 08/01/2016 11:4 1 AM CDT Narrative 08/02/2016 1:28 PM CDT DEXA Bone Density Axial Acc#: [id number] DATE OF EXAM: Aug 01 2016 CLINICAL [...] Fax: -- Attending Fax: -- Attending ID: [id number] Requesting ID: [id number] Report To 1 ID: [id number] Report To 1 Name: ORALIA DILLON Report To 1 FAX: -- NextGen Order #: Procedure Note Provider, MD Chintan - 03/10/2017 DEXA Bone Density Axial Acc#: [id number] DATE OF EXAM: Aug 01 2016 CLINICAL [...] Fax: -- Attending Fax: -- Attending ID: [id number] Requesting ID: [id number] Report To 1 ID: [id number] Report To 1 Name: ORALIA DILLON Report To 1 FAX: -- NextGen Order #: us Historical Provider IMLynne DXA PROCEDURES Final Result * (ABNORMAL) Hemoglobin A1c (10/11/2014 9:46 AM MACHINE TRIMMER) Hgb A1C 7.2(H) <5.7 % of total [...] of diabetes for children. Test performed at [facility] [address] [place] [address] Director: SUNIL FARRAR DO,MPH 10/11/2014 9:46 AM MACHINE TRIMMER Kasey Figueroa MD LAB BLOOD ORDERABLES Final Resul t [facility] HISTORICAL RESULTS * (ABNORMAL) Serum lipid panel (09/29/2013 6:24 AM MACHINE TRIMMER) Cholesterol 163 125 - 200 mg/dl HISTORICAL [...] LDL cholesterol target. Serum 09/29/2013 6:24 AM MACHINE TRIMMER Narrative HISTORICAL RESULTS - 10/02/2013 4:00 PM MACHINE TRIMMER Test performed at [facility] [place] [address] [place] [address] Director: SUNIL FARRAR DO,MPH us Historical Provider LAB BLOOD ORDERABLES Anabell jacques Result HISTORICAL RESULTS from Last 3 Months or Most Recently Relevant to Health Maintenance Insurance [id number] [facility] [email or web address]DELIAYASMIN [address] MEDICARE ADVANTAGE MEDICARE [facility] Address: [address] [address] [place] [address] [employer] [facility] [place] [address] Advance Directives For more information, please contact: [phone] Documents on File Type Date Recorded Patient Winding Lathe Operator Expl anation ADVANCE DIRECTIVE 06/28/2018 7:57 PM Care Teams Change Control Specialist Relationship Specialty [place] [address] [facility] [address] [place] [address] PCP - General 08/09/20 [place] [address] [address] Rheumatology 09/14/17 [place] [address] [address] Gastroenterology 10/26/17
== END 2025-04-12 13:25 | disposition home or self-care (01) ==
LOC: CHSIMG 13:26
PROVIDERS: PCP Family Medicine; Visit Provider Nurse Practitioner
DX: R06.02 Shortness of breath (principal)
CPT/HCPCS: 71046

== ENCOUNTER 2025-07-05 12:45 | Outpatient (CLI) | payer MEDICARE, SELFPAY ==
--- OUTSIDE RECORDS SUMMARY | 2010-05-02 05:30 | XMS_ITS | Continuity of Care Document ---
Author Organization [facility] Address [address] [place] [address] Phone Care Team Providers Care Helpdesk Technician Name Role Phone Dejesus OD, Haris Unavailable Unavailable Procedures Procedure Date Office/outpatient Visit, Est Visual Field Examination(s) Office/outpatient Visit, Est Visual Field Examination(s) Eye Exam Established Pt Visual Field Examination(s) Eye Exam & Treatment Eye Exam Established Pt Advance Directives Directive Yes / No Effective Date File Name No Information Encounters Encounter Description Practice Location Reason(s) For Visit Diagnoses Date Provider Providers Copied on Encounter Office/outpat ient Visit, Est [facility], [address] [place] [address] [address], [place], [place], [id number], [place] tel:[phone] [facility] No Information 4-201 0 Dejesus OD Haris. [address] , [address], [place], [address], [place]. tel:[phone] [facility], [address], [place], [place], [id number], [place] tel:[phone] [facility] No Information 8-200 9 Dejesus OD Haris. [address] , [address], [place], [address], [place]. tel:[phone] Referring Provider: Harsi Dejesus OD A, [facility], [place], [address]. tel:[phone] Office/outpat ient Visit, Est [facility], [address], [place], [place], [id number], [place] tel:[phone] [facility] No Information Boyd-2 5-200 9 Dejesus OD Haris. [address] , [address], [place], [address], [place]. tel:[phone] [facility], [address], [place], [place], [id number], [place] tel:[phone] [facility] No Information Jun-1 1-200 8 Dejesus OD Haris. [address] , [address], [place], [address], [place]. tel:[phone] Referring Provider: Haris Dejesus OD A, [facility], [place], [address]. tel:[phone] [facility], [address], [place], [place], [address], [place] tel:[phone] [facility] No Information Feb-2 4-200 8 Dejesus OD Haris. [address] , [address], [place], [address], [place]. tel:[phone] Referring Provider: Diego Delatorre, [address] [place], [address]. tel:[phone] [facility], [address], [place], [place], [id number], [place] tel:[phone] [facility] No Information Martell-0 2-200 7 Dejesus OD Haris. [address] , [address], [place], [address], [place]. tel:[phone] Referring Provider: Haris Dejesus OD A, [address], [place], [address]. tel:[phone] [facility], [address], [place], [place], [id number], tel:[phone] [facility] No Information Boyd-2 8-200 7 Dejesus OD Haris. [address] [facility] , [address], [place], [address], . tel:[phone] [facility], [address], [place], [place], [id number], tel:[phone] [facility] No Information Dec-2 6-200 6 Dejesus OD Haris. [address] [facility] , [address], [place], [address], . tel:[phone] Family History Family Member Type Diagnosis Age At Onset No Information Payers Payer name Insurance type Covered republican ID Authoriza tion(s) No Information Social History Type Description Quantity Date Captured Comments Sex Female Smoking Status No Information Chief Complaint And Reason For Visit No Information Reason For Referral Reason For Referral No Information History Of Present Illness Encounter Date Complaint History Of Prese nt Illness No Information Functional Status Date Functional Assessmen t No Information Instructions Date Instruction Additional Infor mation No Information Assessments Type Assessment Date No Information Patient Care Teams Name Effective Dates (start - stop) Status Members No Information
--- NOTE | ~2025-07-05 | CT_ITS ---
EXAMINATION: CT brain wo con DATE: 07/05/2025 13:02 INDICATION: Headache TECHNIQUE: Computed tomography (CT) of the head was performed without intravenous contrast. The dose-length product was 605.33 mGy-cm. Automated exposure control and iterative reconstruction technique were employed. COMPARISON: CT dated 03/12/2006 FINDINGS: There is intracranial atherosclerosis. Generalized atrophy. There are scattered mild periventricular and subcortical white matter changes, most likely related to small vessel ischemic disease (microangiopathy). Basilar cisterns are patent. No ventriculomegaly. No acute infarction, hemorrhage, mass or mass effect. There is mucosal thickening of the sphenoid sinuses with air-fluid levels. There are bilateral mastoid effusions. No depressed skull fractures. IMPRESSION: 1. No acute intracranial abnormality. 2: Mild sinus disease. Bilateral mastoid effusions. Reviewed, dictated and finalized at location O.
--- OUTSIDE RECORDS SUMMARY | 2025-07-05 12:56 | XMS_ITS | Encounter Summary ---
Author Organization [facility] Address [address] [place] [address] Care Team Providers Care Hop Farmer Name Role Phone Diego Delatorre MD Primary Care Provider + [phone] Diego Delatorre MD Primary Care Provider + [phone] Kieran Matias MD Primary Care Provider [phone] Kasey Figueroa MD Unavailable Haris Schaefer MD Unavailable [phone] Diego Delatorre MD Primary Care Provider + [phone] Diego Delatorre MD Primary Care Provider + [phone] Deisi Orr DO Primary Care Provider [phone]- [phone] Reason for Referral * (Routine) - Closed Specialty Diagnoses / Procedures Referred By Contac t Referred To Contact Procedures Pulmonary Function Test - [facility] Health Information Management [address] [place] [address] Phone: tel: fax: Referral ID Status Reason Start Date Expiration Date Visits Re quested Visits Authorized [id number] Closed 05/10/2019 11/18/2020 1 1 Encounter Details Date Type Department Care Team (Late st Contact Info) Description 08/10/2014 Orders Only [facility] Health Information Management [address] [place] [address] Diego Delatorre MD [address] [place] [address] Social History Tobacco Use Types Packs/Day Years Used Date Smoking Tobacco: Unknown Alcohol Use Standard Drinks/Week Comments No 0 (1 standard drink = 0.6 oz pur e alcohol) Comments Unknown Sex and Gender Information Value Date Recorded Sex Assigned at Not on file Legal Sex Female 9:30 AM AUDIO PRODUCTION 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 Gender Identity Not on file Sexual Orientation [...] on filedocumented in this encounter Care Teams Hop Farmer Relationship Specialty Start Date End Date Diego Delatorre MD [address] [place] [address] PCP - General 02/06/17 08/05/17 Diego Delatorre MD [address] [place] [address] PCP - General 05/09/09 02/05/17 Kieran Matias MD [address] [place] [address] PCP - General Family Medicine 08/06/17 01/20/18 Diego Delatorre MD [address] [place] [address] PCP - General Family Medicine 01/21/18 04/18/18 Diego Delatorre MD [address] [place] [address] PCP - General 04/19/18 08/08/20 [place] [address] [address] PCP - General 08/09/20 [place] [address] [address] Rheumatology 09/14/17 [place] [address] [address] Gastroenterology 10/26/17 documented as of this encounter
--- OUTSIDE RECORDS SUMMARY | 2025-07-05 12:56 | XMS_ITS | Encounter Summary ---
Author Organization [facility] Address [address] [place] [address] Care Team Providers Care Heart Specialist Name Role Phone Diego Delatorre MD Primary Care Provider + [phone] Diego Delatorre MD Primary Care Provider + [phone] Kieran Matias MD Primary Care Provider [phone] Kasey Figueroa MD Unavailable Haris Schaefer MD Unavailable [phone] Diego Delatorre MD Primary Care Provider + [phone] Diego Delatorre MD Primary Care Provider + [phone] Deisi Orr DO Primary Care Provider [phone]- [phone] Reason for Referral * Diagnostic Imaging (Routine) - Closed Specialty Diagnoses / Procedures Referred By Contac t Referred To Contact Procedures XR Chest Pa Lateral 2 Views [facility] Health Information Management [address] [place] [address] Phone: tel: fax: Referral ID Status Reason Start Date Expiration Date Visits Re quested Visits Authorized [id number] Closed 05/10/2019 11/18/2020 1 1 Encounter Details Date Type Department Care Team (Late st Contact Info) Description 07/12/2014 Orders Only [facility] Health Information Management [address] [place] [address] Diego Delatorre MD [address] [place] [address] Social History Tobacco Use Types Packs/Day Years Used Date Smoking Tobacco: Unknown Alcohol Use Standard Drinks/Week Comments No 0 (1 standard drink = 0.6 oz pur e alcohol) Comments Unknown Sex and Gender Information Value Date Recorded Sex Assigned at Not on file Legal Sex Female 9:30 AM GAS TESTER Gender Identity Not on file Sexual Orientation [...] on filedocumented in this encounter Care Teams Heart Specialist Relationship Specialty Start Date End Date Diego Delatorre MD [address] [place] [address] PCP - General 02/06/17 08/05/17 Diego Delatorre MD [address] [place] [address] PCP - General 05/09/09 02/05/17 Kieran Matias MD [address] [place] [address] PCP - General Family Medicine 08/06/17 01/20/18 Diego Delatorre MD [address] [place] [address] PCP - General Family Medicine 01/21/18 04/18/18 Diego Delatorre MD [address] [place] [address] PCP - General 04/19/18 08/08/20 [place] [address] [address] PCP - General 08/09/20 [place] [address] [address] Rheumatology 09/14/17 [place] [address] [address] Gastroenterology 10/26/17 documented as of this encounter
--- OUTSIDE RECORDS SUMMARY | 2025-07-05 12:56 | XMS_ITS | Encounter Summary ---
Author Organization [facility] Address [address] [place] [address] Care Team Providers Care Tax Representative Name Role Phone Kasey Figueroa MD Unavailable Haris Schaefer MD Unavailable [phone] Diego Delatorre MD Primary Care Provider [phone] Deisi Orr DO Primary Care Provider +- [phone] Encounter Details Date Type Department Care Team (Late st Contact Info) Description 08/08/2020 Telephone [facility] [address] [place] [address] Melanie Thakur, RT Social History Tobacco Use Types Packs/Day Years Used Date Smoking Tobacco: Former Cigarettes Q uit: 1991 Smokeless Tobacco: Never Alcohol Use Standard Drinks/Week Comments No 0 (1 standard drink = 0.6 oz pur e alcohol) Comments Unknown Sex and Gender Information Value Date Recorded Sex Assigned at Not on file Legal Sex Female 9:30 AM MARKETING DATABASE CONSULTANT Gender Identity Not on file Sexual Orientation Not on file 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 Not on file Not on file Not o n file documented as of this encounter Plan of Treatment Not on file documented as of this encounter Visit Diagnoses Not on filedocumented in this encounter Care Teams Tax Representative Relationship Specialty Start Date End Date Diego Delatorre MD [address] [place] [address] PCP - General 04/19/18 08/08/20 Deisi Orr DO [address] [place] [address] PCP - General 08/09/20 [place] [address] [address] Rheumatology 09/14/17 [place] [address] [address] Gastroenterology 10/26/17 documented as of this encounter
--- OUTSIDE RECORDS SUMMARY | 2025-07-05 12:56 | XMS_ITS | Patient Health Record ---
Author Organization [facility] Address [address] [place] [address] Care Team Providers Care Life Enrichment Director Name Role Phone Ezekiel Samuels Unavailable [phone] Reason For Referral No Information Medications Medication SIG (Take, Route, Frequency, Duration) Notes Start Date End Date Status Reglan 5 MG 1 tablet before meal s Orally Twice a day; Duration: 30 day(s) 02/07/2021 Active Triamcinolone Acetonide Active Propranolol HCl Acti ve Esomeprazole Magnesium Active Losartan Potassium A ctive Simvastatin Active Hydroxychloroquine Sulfate Active metFORMIN HCl Active Primidone Active Social History Tobacco Use: Social History Observation Description Date Details (start date - stop date) Never Smoker NA - NA Tobacco Use/Smoking Question Answer Notes Smoking Status nonsmoker Section Notes: No longer smokes and drinks rarely. Plan Of Treatment No Information Insurance Providers Payer Name Payer Address Payer Phone Subscriber Number Group Number Insured Name Patient Relationship to Insured Coverage Start Date Coverage End Date [employer] MEDICARE [address] [address] [place] [address] [phone] [id number] CANDICE ANDRE Self - patient is the insured Medical (General) History Medical History History ICD Code Scleroderma DM HTN Pulmonary fibrosis Surgical History Surgery Date(Month/Year) Hysterectomy Shoulder Sx Cholecystectomy 2016
--- OUTSIDE RECORDS SUMMARY | 2025-07-05 12:56 | XMS_ITS | Encounter Summary ---
Author Organization [facility] Address [address] [place] [address] Care Team Providers Care Director Of Recreation Therapy Name Role Phone Diego Delatorre MD Primary Care Provider + [phone] Diego Delatorre MD Primary Care Provider + [phone] Kieran Matias MD Primary Care Provider [phone] Kasey Figueroa MD Unavailable Haris Schaefer MD Unavailable [phone] Diego Delatorre MD Primary Care Provider + [phone] Diego Delatorre MD Primary Care Provider + [phone] eDisi Orr DO Primary Care Provider [phone]- [phone] Reason for Referral * (Routine) - Closed Specialty Diagnoses / Procedures Referred By Contac t Referred To Contact Procedures Pulmonary Function Test - [facility] Health Information Management [address] [place] [address] Phone: tel: fax: Referral ID Status Reason Start Date Expiration Date Visits Re quested Visits Authorized [id number] Closed 05/10/2019 11/18/2020 1 1 Encounter Details Date Type Department Care Team (Late st Contact Info) Description 09/07/2014 Orders Only [facility] Health Information Management [address] [place] [address] Diego Delatorre MD [address] [place] [address] Social History Tobacco Use Types Packs/Day Years Used Date Smoking Tobacco: Unknown Alcohol Use Standard Drinks/Week Comments No 0 (1 standard drink = 0.6 oz pur e alcohol) Comments Unknown Sex and Gender Information Value Date Recorded Sex Assigned at Not on file 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 Gender Identity Not on file Sexual Orientation [...] on filedocumented in this encounter Care Teams Director Of Recreation Therapy Relationship Specialty Start Date End Date Diego Delatorre MD [address] [place] [address] PCP - General 02/06/17 08/05/17 Diego Delatorre MD [address] [place] [address] PCP - General 05/09/09 02/05/17 Kieran aMtias MD [address] [place] [address] PCP - General Family Medicine 08/06/17 01/20/18 Diego Delatorre MD [address] [place] [address] PCP - General Family Medicine 01/21/18 04/18/18 Diego Delatorre MD [address] [place] [address] PCP - General 04/19/18 08/08/20 [place] [address] [address] PCP - General 08/09/20 [place] [address] [address] Rheumatology 09/14/17 [place] [address] [address] Gastroenterology 10/26/17 documented as of this encounter
--- OUTSIDE RECORDS SUMMARY | 2025-07-05 12:56 | XMS_ITS | Clinical Summary ---
Author Organization [facility] Address [address] [place] [address] Care Team Providers Care Packing Line Worker Name Role Phone Diego Delatorre MD Primary Care Provider [phone] Source Comments [facility],non-[facility] Affiliates and Associated Physician Practices is amultiple site organization consisting of ambulatory clinics and hospital sitesin [place], [place], [place] and [place]. This disclosure is being madepursuant to the Care Everywhere program and may not contain all information available regarding this patient. Last updated 18.[facility] Social History Tobacco Use Types Packs/Day [...] VACCINE (1 of 2) 2001 COVID-19 VACCINE ( - 2023-2 5 season) 2024 DEPRESSION SCREENING 11/09/2024 INFLUENZA VACCINE (#1) 2025 Respiratory Syncytial Virus (RSV) Vaccine Pt: [...] patient's age to complete this topic Insurance CoverMe Care Teams Packing Line Worker Relationship Specialty Start Date End Date Diego Delatorre MD [address] [place] [id number] PCP - General Family Medicine 06/27/14
--- OUTSIDE RECORDS SUMMARY | 2025-07-05 12:56 | XMS_ITS | Clinical Summary ---
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 Nausea 09/22/2017 Assessment & Plan (09/22/2017 11:07 AM [facility] Informed to f/u with her gi for this. Will check vitamin a, b12 and d again to rule out a scleroderma involvement. Chest pain 09/22/2017 Assessment & Plan (09/22/2017 11:11 AM [facility]): Informed that she should go to the ER if she were to get cp again as the next one could be the last one. Vitamin D deficiency 09/22/2017 Assessment & Plan (09/22/2017 11:11 AM [facility]): On supplementation, but will check vit d again today with labs. Gout 07/10/2017 Assessment & Plan (04/28/2018 10:32 AM CDT): Patient's uric acid was 2.5. She continues on allopurinol. Assessment & Plan (01/21/2018 9:25 AM CDT): She is having pain in the right big toe. I put Pennsaid on [facility] She had labs in Dec so I am planning on checking labs in March with the labs she is getting for her pcp. I am adding an uric acid level Assessment & Plan (09/22/2017 11:55 AM [facility]): No gout flares. Uric acid has been normal. Will check at her next ov. Assessment & Plan (07/10/2017 10:16 AM CDT): No gout flares. will check uric acid. [facility] use of drug 07/10/2017 Assessment & Plan (04/28/2018 10:32 AM CDT): Will continue to monitor the patient with routine labs. Assessment & Plan (09/22/2017 11:11 AM [facility]): Labs today. Bilateral shoulder pain 07/10/2017 Assessment & Plan (09/22/2017 8:40 AM [facility]): Bilateral shoulders, could be rotator cuff pathology. 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 Assessment & Plan (04/28/2018 10:31 AM CDT): [...] year will plan on going back to [place] She noticed more joint pain. She has been focusing on eating healthier and a heavy cleaner lifestyle She had an AVISE last year and was noted to have a positive JOSE LUIS and anti CENP. Assessment & Plan (09/22/2017 11:05 AM [facility]): Stable with hcq bid. Will check labs today. AVISE from last ov shows +JOSE LUIS and +anti CENP ab c/w CREST syndrome diagnosis. Due to get PFT's and echo with ekg manager, getting them today. Informed to get those [...] Due to get PFT's and echo with ekg manager. 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 eGFR NON-AFR. UZBEK 68 > OR = 60 mL/min/1 .73m2 [...] (SGPT) 13 6 - 29 U/L [facility] Blood specimen (specimen) 04/23/2018 8:00 AM CDT 04/23/2018 8:01 AM CDT Narrative [facility] - 04/24/2018 11:31 AM CDT FASTING:YES FASTING: YES Resulting Agency Comment Performing Organization Information: Site ID: [id number] Name: [facility] Address: [address] [address] Director: Sunil Farrar D.O., MPH us Kasey Figueroa MD LAB BLOOD ORDERABLES Final Resul t [facility] [place] * Dexa Axial Skeleton Bone Density 1 or 2 Site (08/01/2016 11:41 AM CDT) Anatomical Region Laterality Modality Body N/A Radiographic Lu ging 08/01/2016 11:4 1 AM CDT Narrative 08/02/2016 1:28 PM CDT DEXA Bone Density Axial Acc#: [id number] DATE OF EXAM: Aug 01 2016 CLINICAL [...] Fax: -- Attending Fax: -- Attending ID: [id number] Requesting ID: [id number] Report To 1 ID: [id number] Report To 1 Name: ORALIA DILLON Report To 1 FAX: -- NextGen Order #: Procedure Note Provider, MD Chintan - 03/10/2017 DEXA Bone Density Axial Acc#: [id number] DATE OF EXAM: Aug 01 2016 CLINICAL [...] Fax: -- Attending Fax: -- Attending ID: [id number] Requesting ID: [id number] Report To 1 ID: [id number] Report To 1 Name: ORALIA DILLON Report To 1 FAX: -- NextGen Order #: us Historical Provider MD [facility] DXA PROCEDURES Final Result * (ABNORMAL) Hemoglobin A1c (10/11/2014 9:46 AM [facility]) Hgb A1C 7.2(H) <5.7 % of total [...] of diabetes for children. Test performed [facility] [address] [place] [address] Director: SUNIL FARRAR DO,MPH 10/11/2014 9:46 AM [facility] Kasey Figueroa MD LAB BLOOD ORDERABLES Final Resul t [facility] HISTORICAL RESULTS * (ABNORMAL) Serum lipid panel (09/29/2013 6:24 AM [facility]) Cholesterol 163 125 - 200 mg/dl HISTORICAL [...] LDL cholesterol target. Serum 09/29/2013 6:24 AM [facility] Narrative HISTORICAL RESULTS - 10/02/2013 4:00 PM [facility] Test performed at [facility] [place] [address] [place] [address] Director: SUNIL FARRAR DO,MPH us Historical Provider LAB BLOOD ORDERABLES Anabell jacques Result HISTORICAL RESULTS from Last 3 Months or Most Recently Relevant to Health Maintenance Insurance [employer] MEDICARE ADVANTAGE [facility] Address: [address] [address] [place] [address] MEDICARE [employer] SIG [id number] [facility] MEDICARE Address: [address] [address] [place] [address] [facility] MEDIC[facility] Address: [address] [address] [place] [address] Advance Directives For more information, please contact: [phone] Documents on File Type Date Recorded Patient Metallurgical Or Materials Technician Expl anation ADVANCE DIRECTIVE 06/28/2018 7:57 PM Care Teams Lieutenant Ballistics Relationship Specialty Start Date End Date [place] [id number] [address] PCP - General 08/09/20 [place] [id number] [address] Rheumatology 09/14/17 [place] [id number] [address] Gastroenterology 10/26/17
== END 2025-07-05 12:46 | disposition home or self-care (01) ==
LOC: CHSIMG 12:46
PROVIDERS: PCP Family Medicine; Visit Provider Family Medicine
DX: R51.9 Headache, unspecified (principal); H74.8X3 Other specified disorders of middle ear and mastoid, bilateral
CPT/HCPCS: 70450